=== PATIENT | female | born 2000 | race Caucasian/White ===

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

== ENCOUNTER 2021-01-09 12:55 | Inpatient (IN) | payer MEDICAID, SELFPAY ==
[2021-01-03 08:21] VITALS: BMI 27.6
[2021-01-09] VITALS (31 sets, daily range): BP systolic 111–138; BP diastolic 57–88; PULSE 83–120; TEMP 36.3–37.2; O2SAT 98–100; BMI 28.7
[2021-01-09 12:51] LABS: ROM Internal Control Test YES-OK TO RESULT pt. (Internal QC)
[2021-01-09 12:52] LABS: ROM Patient Test POSITIVE (Negative)
[2021-01-09] MEDS: Lactated Ringers 1,000 ML 50 ML IV (13:25)
[2021-01-09 13:50] LABS: Absolute Neutrophil Count 6.9 X10^3/uL (2.0-7.7); Basophil# 0.04 X10^3/uL; Basophil% 0.4 % (0-1); Eosinophil# 0.03 X10^3/uL; Eosinophils% 0.3 % (0-5); Hematocrit 33.1 % (37-47); Hemoglobin 10.2 g/dL (12.0-15.0); Lymphocyte % 14.4 % (19-41); Mean Corp Hgb Conc 30.8 g/dL (32-36); Mean Corpuscular Hgb 27.1 pg (27.0-32.0); Mean Corpuscular Volume 87.8 fL (81-99); Mean Platelet Vol. 12.2 fl (6.2-12.0); Monocyte# 0.61 X10^3/uL; Monocyte% 6.7 % (0-10); NRBC Flagged by Analyzer 0 % (0-5); Neutrophil # 6.94 X10^3/uL (2.7-7.7); Neutrophil % 76.8 % (47-70); Platelet Count 180 K/mm3 (150-450); RBC Distribution Width CV 14.4 % (11.6-14.6); RBC Distribution Width SD 45.5 fl (35.1-43.9); Red Blood Count 3.77 M/mm3 (4.2-5.4); White Blood Count 9.1 K/mm3 (4.4-11.0)
[2021-01-09] MEDS: Acetaminophen 500 MG Tablet PO (15:41)
[2021-01-09] MEDS: miSOPROStol 25 MCG TABLET PO (16:16)
[2021-01-09] MEDS: 0.9% Saline Lock 10 ML Syringe IV ×2 (16:16→19:36)
[2021-01-09] MEDS: Lactated Ringers 500 ML 999 ML IV (17:51)
[2021-01-09] MEDS: fentaNYL-bupivacaine (epidural) 100 ML BAG EPIDURAL ×2 (19:02→23:13)
[2021-01-09] MEDS: Ondansetron 4 MG/2 ML Vial IV (19:36)
[2021-01-09] MEDS: Oxytocin 30 units/NS 500 ml 30 UNITS/500 ML IV.SOLN IV (20:55)
[2021-01-09] MEDS: Lactated Ringers 1,000 ML 200 ML IV (22:16)
[2021-01-10] VITALS (18 sets, daily range): BP systolic 103–135; BP diastolic 56–88; PULSE 75–105; RESP 16–18; TEMP 36.5–37.6; O2SAT 83–99
[2021-01-10] MEDS: 0.9% Saline Lock 10 ML Syringe IV (00:40)
[2021-01-10] MEDS: Ondansetron 4 MG/2 ML Vial IV (00:40)
[2021-01-10] MEDS: Oxytocin 30 units/NS 500 ml 30 UNITS/500 ML IV.SOLN 334 UNITS IV (02:24)
--- NOTE | 2021-01-10 02:37 | HP.PCM_ITS ---
- Problem List (1) SROM (spontaneous rupture of membranes) Status: Acute (2) 35 weeks gestation of Status: Acute Comment: electronic covid test ordered 12/07/20 (scheduled for 01/11/21 at 1340) (3) Encounter for contraceptive management Status: Acute Qualifiers: Comment: IUD 6 wk pp (4) History of cleft lip Status: Acute Comment: patient's father (5) History of tetanus, diphtheria, and acellular pertussis booster vaccination (Tdap) Status: Acute Comment: 10/25/20 (6) Iron (Fe) deficiency anemia Status: Acute Qualifiers: Comment: recheck in 4 wks- recheck is still low- needs weekly Venofer. 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 Accompanied by: self Allergies No Known Allergies Allergy (Verified 01/03/21 08:24) Medications multivitamin no.47-iron fum 27 mg-folate no.1 1 mg-dha 300 mg capsule cap PO 06/07/20 [History Confirmed 01/03/21] ondansetron 4 mg disintegrating tablet 4 mg PO Q4H PRN #60 tab 10/25/20 [Rx Confirmed 01/03/21] Last Menstral Period: 04/06/20 Zika: Zika virus screening: Negative : No PFSH PFSH Family History Mother Diabetes Social History (Updated 01/03/21 @ 09:34 by Cecy Wing NP, [employer]) current occupational status: unemployed pets and animals: Yes second hand exposure: Yes alcohol intake: never substance use type: does not use seatbelt use: always do you feel safe at home: Yes additional social history: BF- Mateus Aponte Pregancy History 2 Elective abortions Hx Para 0 Spontaneous abortions Hx # Term Pregnancies Ectopic pregnancies Hx # Pregnancies Multiple births # of living children HPI 38WK OB : Details: JIA BEAR is a 20 year old at 39 weeks 5 days presents with clear SROM 1 cm dilated irregular contractions no vaginal bleeding. OB Visit MARGARITA Calculator Estimated Delivery Date Method Current WG Current Estimate 01/11/21 LMP (Certain) 38w 6d Other Estimates 01/13/21 Ultrasound #1 38w 4d Expected Delivery Route/Plan Labor Preferences- CB/BF classes: encouraged labor support person: Mateus labor intervention preferences: nonspecific. pain management options preferred: epidural cut cord/dad catch: yes : yes PP control planned: IUD discussed possible routes of delivery and associated risks: discussed possible delivery modalities and possible indications for each including R/B/A of , VAVD, FAVD, and CS. questions answered. special requests: none Specific Issue/Plans flu vaccine: declined tdap vaccine: given rhogam: NA LARC form signed: yes movement and labor precautions reviewed. Problem list reviewed and updated with the most current plan of care details and appropriate orders placed. Relevant counseling for the gestational age provided. Continue routine care and follow up unless otherwise noted in visit notes/problem list details Initial Weight: 128 lb Date EGA Weight BP Urine Prot Glucose FHR FuHt Pres Dilation Effaced St Visit Note 06/07/20 8w 6d 128 lb (+0 oz) 116/60 116/60 163 GP - CRL 17.4mm consistent with LMP. 07/02/20 12w 3d 132 lb (+4 lb) 100/74 160 SM- no vb lof cramping still nauseated 08/07/20 17w 4d 139 lb 8 oz (+11 lb 8 oz) 118/70 Negative Negative 145 MH-nausea resolved. No VB, LOF. 10/11/20 26w 6d 155 lb (+27 lb) 100/70 145 Sm- no vb lof good fm no regular ctx discussed getting anatomy scans 10/25/20 28w 6d 161 lb (+33 lb) 126/78 Negative Negative 138 28 MH-NO VB, LOF. Good FM. Still some nausea. 28 wk labs, tdap, larc. 11/08/20 30w 6d 167 lb (+39 lb) 138/80 Negative Negative 130 30 GP - no LOF, VB, DFM, ctx. Discussed anemia and importance of taking iron. 11/22/20 32w 6d 168 lb 6 oz (+40 lb 6 oz) 110/80 Negative Negative 130 33 SM- repeat cbc today no vb lof good fm no regular ctx 12/06/20 34w 6d 174 lb 4 oz (+46 lb 4 oz) 132/72 Negative Negative 120 34 GP - no LOF, VB, DFM, ctx. Denies complaints. 12/20/20 36w 6d 177 lb (+49 lb) 118/88 Negative Negative 140 36 Cephalic 1 60 -2 GP - no LOF, VB, DFM, reg ular ctx. GBS done today. Discussed routes of delivery. 12/27/20 37w 6d 180 lb (+52 lb) 123/81 Negative Negative 140 37 Cephalic 1 SM- no vb lof good fm no regular ctx 01/03/21 38w 6d 181 lb 6 oz (+53 lb 6 oz) 122/64 Negative Negative 135 38 Cephalic 1 -2 MH-No VB, LOF or reg CTX. States no FM this AM. NST ACOG First Trimester First Trimester: Desire for , Alcohol, Tobacco Cessation, Illicit/Recreational Drug/Substance Use, Intimate Partner Violence, Environmental/Work Hazards, Anticipated Course of Care, Toxoplasmosis Precations, Use of Any medications, Sexual activity, Exercise, Dental Care, Childbirth classes/Hospital facilities and Screening for Aneuploidy Second Trimester Second Trimester: Signs and Symptoms of Labor, Selecting a care provider, Reproductive Life Planning, Care Planning, Depression/Anxiety and Intimate Partner Violence; discussed Tobacco Cessation Diagnostics Diagnostics Diagnostics Glucose 1 Hr 50 gm 130 mg/dL (70-140) 10/25/20 Hgb 9.7 g/dL (12.0-15.0) L 11/22/20 Hct 30.6 % (37-47) L 11/22/20 Details: HIV: Urine Culture: Sequential Screen: NIPT Screen: ROS Const Reports system reviewed and no additional complaints, except as documented Card Reports system reviewed and no additional complaints, except as documented Resp Reports system reviewed and no additional complaints, except as documented GI Reports system reviewed and no additional complaints, except as documented, Reports nausea Reports system reviewed and no additional complaints, except as documented Musc Reports system reviewed and no additional complaints, except as documented all other systems reviewed and negative Exam Const General: cooperative, healthy appearing, comfortable HENMT Head: normal to inspection Nose: external nose normal Face and sinus: normal facial exam Neck Neck: normal visual inspection, full ROM, no lymphadenopathy Thyroid: thyroid normal Chest Chest palpation & inspection: normal inspection of the chest Resp Effort & Inspection: normal respiratory effort GI Inspection: normal to inspection Palpation: soft, other (gravid uterus) Other: vertex and appropriate size for gestational age Other: Cervical Exam: Extrem General: pedal edema Office Procedures OB NST Non-Stress Test Indications for Monitoring: Yes decreased movement Heart Rate Baseline: 140 Heart Rate Variability: moderate Movement: Present Heart Rate Accelerations: Present Decelerations: Absent Contractions: Absent Impression: Yes Reactive Non-Stress Test Results POC Urinalysis 2 Dip (Clinic) Office Urine Glucose Negative Last Edit by Anna Marie Prater on 01/03/21 08:29 Office Urine Protein Negative Last Edit by Anna Marie Prater on 01/03/21 08:29 Assessment & Plan Problems 1. PROM 2. Encounter for supervision of normal first in third trimester Z34.03 PRR MARGARITA 01/11/21 Girl - BF: Mateus 3. 38 weeks gestation of Z3A.38 genetic- low risk and carrier neg , 10/15 US adequate growth 4. Positive GBS test B95.1 Plan Patient presents SROM plan Pitocin as needed, status post Cytotec due to premature rupture membranes. Pain management: [plans epidural]. GBS [positive plan IV PCN]. Management of any complications: [none] I have reviewed the [facility] and made any clinically relevant updates. Orders Orders: POC Urinalysis 2 Dip (Clinic) Today OB NST Today O36.8190 Coding Level of Care Code Off vis,est,level 3 Diagnoses Decreased movement affecting management of in third trimester, single or unspecified fetus O36.8130 ??Fetus number: single or unspecified fetus Encounter for supervision of normal first in third trimester Z34.03 ??Trimester: third trimester 38 weeks gestation of Z3A.38 ??Weeks of gestation: 38 weeks Positive GBS test B95.1 Additional Codes Non-Stress Test (55263)
--- NOTE | 2021-01-10 02:39 | OP.PCM_ITS ---
Problem List (1) SROM (spontaneous rupture of membranes) Status: Acute (2) 35 weeks gestation of Status: Acute Comment: electronic covid test ordered 12/07/20 (scheduled for 01/11/21 at 1340) (3) Encounter for contraceptive management Status: Acute Qualifiers: Comment: IUD 6 wk pp (4) History of cleft lip Status: Acute Comment: patient's father (5) History of tetanus, diphtheria, and acellular pertussis booster vaccination (Tdap) Status: Acute Comment: 10/25/20 (6) Iron (Fe) deficiency anemia Status: Acute Qualifiers: Comment: recheck in 4 wks- recheck is still low- needs weekly Venofer. faxed order for infusions (7) Positive GBS test Status: Acute (8) Status: Acute Qualifiers: Comment: genetic- low risk and carrier neg , 10/15 adequate growth (9) Supervision of normal first Status: Acute Qualifiers: Comment: PRR MARGARITA 01/11/21 Girl - Kati BF: Mateus Vaginal Delivery Maternal Presentation: Active Labor, Spontaneous Rupture of Membranes 20-year-old C2 P0 at 39 weeks 5 days presents with clear SROM 70/-2 irregular contractions Method of Induction: Pitocin, Cytotec Amniotic Membrane Rupture Type: Spontaneous at home Amniotic Fluid Description: Clear Final MARGARITA: 01/11/21 Gestational age: 39 Weeks and 6 Days Date of Procedure: 01/10/21 Pre-Operative Diagnosis: SROM Post-Operative Diagnosis: Same Surgery/ Procedure Performed: Spontaneous Vaginal Delivery Type of Anesthesia: Epidural Description of Procedure: Patient began pushing and delivered the head in the STEPHANIE presentation. The head was delivered atraumatically. The anterior and posterior shoulders delivered without complication followed by the rest of the infant and the was placed on the maternal abdomen. Delayed cord clamping was employed for approximately 60 seconds. Cord was clamped and cut and gentle traction was applied to the cord and the placenta delivered spontaneously immediately following it was noted to be intact with three-vessel cord. The perineum and vagina were inspected and noted to have no laceration. EBL was 100 cc. Patient and infant tolerated delivery well. Presentation: STEPHANIE Placental Delivery Description: Spontaneous Multi Select Codes - Urinary/Genital Urinary/Genital CPT Codes: 19100 Vaginal Delivery+ PP Care([facility])
[2021-01-10] MEDS: Naproxen 250 MG Tablet 500 MG PO (20:46)
[2021-01-11 04:38] VITALS: BP 123/73; PULSE 78; RESP 18; TEMP 36.6
[2021-01-11 08:10] VITALS: BP 127/88; PULSE 66; RESP 14; TEMP 36.7
[2021-01-11] MEDS: Acetaminophen 500 MG Tablet 1000 MG PO (08:13)
[2021-01-11] MEDS: Senna/Docusate Sodium 1 Tablet PO (08:14)
--- NOTE | 2021-01-11 09:51 | DCINST_ITS ---
Discharge Diet: No Restrictions Discharge Activity: Return to Normal Activity, May not drive while taking narcotic pain medications., May Shower May resume sexual activity in: 4-6 weeks Call your doctor if your incision/area has: Continuous Slow Oozing, Sudden Increased Bleeding, Increased Pain/ Swelling, Increased Redness, Foul Smelling Discharge Additional Instructions: If you experience any of the following, contact your healthcare provider. * Bleeding that soaks a pad every hour for 2 hours * Fever 100.4 or higher * Unrelieved incision or abdominal pain * Swelling, redness, discharge or bleeding from your incision or episiotomy site * Your incision begins to separate * Problems urinating (including inability to urinate or burning while urinating). * Visual changes * Severe headache * Flu-like symptoms * Pain or redness in one of both of your breasts * Pain, warmth, tenderness or swelling in your legs, especially the calf area * Frequent nausea and vomiting * Symptoms of depression or anxiety If you experience any of the following, call 911 or go to the nearest Emergency Room. * Chest pain * Problems breathing * Seizure activity * Partial or complete paralysis of a body part, slurred speech, weakness or drooping of the face, or a sudden inability to walk or hold your balance Allergies/Adverse Reactions: Allergies No Known Allergies Allergy (Verified 01/09/21 13:39) Medications to take at Discharge multivitamin no.47-iron fum 27 mg-folate no.1 1 mg-dha 300 mg capsule 1 cap PO DAILY 06/07/20 Naproxen [Naprosyn] 250 - 500 mg PO Q8H PRN PRN #30 tab 01/10/21 Naproxen [Naprosyn] 250 - 500 mg PO Q8H PRN PRN #30 tab 01/11/21 The following prescriptions were given: Naproxen [Naprosyn] 250 - 500 mg PO Q8H PRN PRN #30 tab PRN Reason: MILD PAIN Transmission Status: Received by [facility] Please Follow Up With: Jenna Pedersen MD - [phone] When: Call to make an appointment with your doctor in 6 weeks. If you had elevated Blood pressure or 4th degree laceration you will need to be seen in 2 weeks. Test Results: Test results from this visit will be discussed in further detail at your follow- up appointment, if applicable.
--- NOTE | 2021-01-11 09:51 | PCM.DCVAG ---
Discharge Diet: No Restrictions Discharge Activity: Return to Normal Activity, May not drive while taking narcotic pain medications., May Shower May resume sexual activity in: 4-6 weeks Call your doctor if your incision/area has: Continuous Slow Oozing, Sudden Increased Bleeding, Increased Pain/ Swelling, Increased Redness, Foul Smelling Discharge Additional Instructions: If you experience any of the following, contact your healthcare provider. Bleeding that soaks a pad every hour for 2 hours Fever 100.4 or higher Unrelieved incision or abdominal pain Swelling, redness, discharge or bleeding from your incision or episiotomy site Your incision begins to separate Problems urinating (including inability to urinate or burning while urinating). Visual changes Severe headache Flu-like symptoms Pain or redness in one of both of your breasts Pain, warmth, tenderness or swelling in your legs, especially the calf area Frequent nausea and vomiting Symptoms of depression or anxiety If you experience any of the following, call 911 or go to the nearest Emergency Room. Chest pain Problems breathing Seizure activity Partial or complete paralysis of a body part, slurred speech, weakness or drooping of the face, or a sudden inability to walk or hold your balance Allergies/Adverse Reactions: Allergies No Known Allergies Allergy (Verified 01/09/21 13:39) Medications to take at Discharge multivitamin no.47-iron fum 27 mg-folate no.1 1 mg-dha 300 mg capsule 1 cap PO DAILY 06/07/20 Naproxen [Naprosyn] 250 - 500 mg PO Q8H PRN PRN #30 tab 01/10/21 Naproxen [Naprosyn] 250 - 500 mg PO Q8H PRN PRN #30 tab 01/11/21 The following prescriptions were given: Naproxen [Naprosyn] 250 - 500 mg PO Q8H PRN PRN #30 tab PRN Reason: MILD PAIN Transmission Status: Received by [facility] Please Follow Up With: Jenna Pedersen MD - [phone] When: Call to make an appointment with your doctor in 6 weeks. If you had elevated Blood pressure or 4th degree laceration you will need to be seen in 2 weeks. Test Results: Test results from this visit will be discussed in further detail at your follow-up appointment, if applicable.
--- NOTE | 2021-01-11 09:53 | PCM.PN.OB ---
Patient Problems: Active and Suspected Problems (Last Reviewed 01/03/21 @ 08:24 by Anna Marie Prater) SROM (spontaneous rupture of membranes) (Acute) Positive GBS test (Acute) 35 weeks gestation of (Acute) electronic covid test ordered 12/07/20 (scheduled for 01/11/21 at 1340) Iron (Fe) deficiency anemia (Acute) recheck in 4 wks- recheck is still low- needs weekly Venofer. faxed order for infusions Encounter for contraceptive management (Acute) IUD 6 wk pp History of tetanus, diphtheria, and acellular pertussis booster vaccination (Tdap) (Acute) 10/25/20 History of cleft lip (Acute) patient's father Supervision of normal first (Acute) PRR MARGARITA 01/11/21 Girl - Kati BF: Mateus (Acute) genetic- low risk and carrier neg , 10/15 adequate growth Subjective: Patient doing well without complaints. Tolerating PO. Ambulating and voiding without difficulty. feeding well. Denies chest pain, shortness of breath, calf pain/swelling, fevers, chills, lightheadedness. - Physical Exam Vitals/I&O's: Vital Signs Temp Pulse Resp BP Pulse Ox 98.0 F 66 14 127/88 H 99 01/11/21 08:10 01/11/21 08:10 01/11/21 08:10 01/11/21 08:10 01/10/21 01:42 Oxygen Delivery Method Room Air Weight: 183 lb 3.266 oz Body Mass Index (BMI) 28.7 Intake and Output for Last 24 Hours 01/09/21 01/10/21 01/11/21 23:59 23:59 23:59 Intake Total 1652.43 / 1652.43 1588.60 / 1588.60 Output Total 300 / 300 Balance 1652.43 / 1652.43 1288.60 / 1288.60 General: Alert, Oriented x3 Microbiology Past 72 Hours 01/09/21 13:15 Mucosa - Nose SARS-CoV-2 Antigen (Rapid) - Final Current Medications Acetaminophen (Acetaminophen 500 Mg Tablet) 1,000 mg PO Q8H PRN PRN PRN Reason: Pain Score 1-3 Last Admin: 01/11/21 08:13 Dose: 1,000 mg Documented by: Bisacodyl (Bisacodyl 10 Mg Suppository) 10 mg RC UD PRN PRN Reason: If no BM Dibucaine (Dibucaine 30 Gm Tube) 1 applic TOPICAL TID PRN PRN; Protocol PRN Reason: Discomfort Hydrocortisone (Hydrocortisone 2.5% Crm) 1 applic TOPICAL TID PRN PRN; Protocol PRN Reason: Discomfort Methylergonovine Maleate (Methylergonovine 0.2 Mg/Ml Ampul) 0.2 mg IM X1 PRN PRN Reason: Excess bleeding/uterine atony Naproxen (Naproxen 250 Mg Tablet) 500 mg PO Q8H PRN PRN PRN Reason: Pain Score 1-3 Last Admin: 01/10/21 20:46 Dose: 500 mg Documented by: Ondansetron HCl (Ondansetron 4 Mg/2 Ml Vial) 4 mg IV Q4H PRN PRN PRN Reason: Nausea Oxycodone HCl (Oxycodone 5 Mg Tablet) 5 - 10 mg PO Q4H PRN PRN PRN Reason: Pain Score 4-10 Senna/Docusate Sodium (Senna/Docusate Sodium 1 Tablet) 1 - 2 tablet PO DAILY PRN PRN PRN Reason: Constipation Last Admin: 01/11/21 08:14 Dose: 1 tablet Documented by: Simethicone (Simethicone 80 Mg Tablet) 80 mg PO PCHS PRN PRN Reason: Indigestion/Stomach pain Sodium Chloride (0.9% Saline Lock 10 Ml Syringe) 5 - 15 ml IV UD PRN PRN Reason: SALINE FLUSH Medical Necessity - Tobacco Use Smoking Status: Never smoker Assessment/Plan All Active Problems (Last Reviewed 01/03/21 @ 08:24 by Anna Marie Prater) SROM (spontaneous rupture of membranes) (Acute) Positive GBS test (Acute) 35 weeks gestation of (Acute) Iron (Fe) deficiency anemia (Acute) Encounter for contraceptive management (Acute) History of tetanus, diphtheria, and acellular pertussis booster vaccination (Tdap) (Acute) History of cleft lip (Acute) Supervision of normal first (Acute) (Acute) s/p PPD # 1 1. routine post delivery care 2. breast feeding- support given 3. rh positive 4. rubella immune
[2021-01-11] MEDS: Naproxen 250 MG Tablet 500 MG PO (11:21)
[2021-01-11 11:24] VITALS: BP 135/73; PULSE 60; RESP 14; TEMP 36.8
--- NOTE | 2021-01-11 12:45 | CASEMGMT ---
Addendum entered and electronically signed by Araceli Howell 01/14/21 14:52: For clarification, Dawn depression screen with a score of 11 rather than a score of 13 as originally documented. -LUTHER Swanson, COMMUNITY HEALTH AGENT Original Note: Social Work Assessment Labor and Delivery Unit Patient Address: [address] [place] [address] Phone number: [phone] Date of Referral: 01/11/2021 Time of Referral: [phone] Referred By: Verbal notification by nursing staff Date of Intervention: 01/11/2021 Time of Intervention: 124 Reason for Referral: Teen mother-18 years old, history of marijuana use History obtained from: Medical records and mother of baby (MOB) Rosie Max; father of baby (FOB) Mateus Aponte present for part of conversation. Household composition: MOB and FOB reports negative home with the FOB several of his siblings. MOB and FOB report there is enough room. FOB reports he is a mother of baby live upstairs. Patient's parent/guardian status: MOB is a 20-year-old single female involved with the FOB is 23 years old, for the last 3 years. In speaking with the MOB privately, the MOB denies any form of abuse in his relationship. baby is the first for both parents. is to be named Deann Aponte, born 01-10-2020. Medical History: DANIEL is 2, para 0 now 1 after delivering Deann. care started in the first trimester at 8 weeks. There was a gap in care from 17 to 26 weeks. Delivery occurred at 39 weeks gestation. weight for Deann was 7 pounds 10 ounces. Apgars 8 and 9 at 1 and 5 minutes of life respectively. Educational Status: MOB reports she got through the 10th grade in school. Reports she did have learning disability and an IEP in school. Reports she can read and write, as well as understand what is read. However during this assessment, this documentation writer did have to reword a few things to ensure parent understanding. Financial Status: Neither MOB nor FOB work, and are dependent on the FOB's parents for financial support. FOB reports plan to get his license soon and find a job. Infant Supplies: MOB and FOB report to have all needed baby supplies including a crib, car seat, clothing, wipes, pump, bottles. Report ability to get formula if needed. MOB is providing breastmilk at this time. Childcare/Caregiver(s): MOB plans to be the primary caregiver of the . Will have help from the FOB as well. Transportation: MOB and FOB rely on his parents for transportation. Programs/Agencies Involved: DANIEL has medical through job and family services. Active with WIC. Verbally agrees to a referral to help me grow. Children Services/Legal Issues: MOB and FOB deny any legal history. MOB reports as a minor herself children services was called once when living out of state for concerns about meth lab in her home, but reports it was just hair dye ring in the bathtub rather than meth lab. MOB reports the second call was here in [place] with complaints of no food in the home. Nothing as an adult nor regarding MOB with minor children. Behavioral Health Issues: Mental Health History: DANIEL reports that she had depression as a child and thoughts of harming herself when in school. Denies any attempts at harming herself however. Denies any thoughts of harming herself as an adult. Initially the MOB denied any history of depression or anxiety. Had MOB complete the Dawn depression screen which resulted in a score of 13. Educated MOB that this indicates there is some level of depression and/or anxiety present for this MOB. MOB asked this documentation writer to explain more in depth about what anxiety actually is. This documentation writer reviewed signs and symptoms of anxiety. After education the MOB stated believe that she does not fact have anxiety. Substance Use History: MOB denies any illicit substance use history. This documentation writer discussed privately with the MOB reports this documentation writer received about MOB potentially having history of marijuana usage. MOB reported that she was around people who were using marijuana during this and that she breathe did then and started choking, so was concerned she may have inhaled it. MOB denies there is anybody in the home using marijuana. Denies any history of other drug use such as heroin, cocaine, or meth. Denies alcohol usage. Family History: MOB reports that her mother and her brother both have schizophrenia and bipolar disorder. FOB reports that he has a sister with bipolar disorder and schizophrenia. Drug Screens: This documentation writer noted a negative maternal drug screen on 2019. Baby's urine drug screen at delivery is negative. Meconium is pending. Family/Social Stressors: Unplanned though accepted. Limited finances, though parents do not express this as a stressor due to the FOB's parents being supportive. Reliant on others for transportation. MOB reports that she already is worrying about the baby. Support Systems: MOB reports that the FOB and his family are her primary support systems. MOB family lives in [place] so does not always easy to see them with having limited transportation. Depression/Shaken Baby/Safe Sleeping: Educated MOB and FOB to depression and anxiety. Educated to risk factors present and the importance of seeking out help and support. Educated to shaken baby syndrome and safe sleeping. Reinforced safe care of infant in regards to these topics. ASSESSMENT: Met with the MOB and the FOB together and then separately with the MOB. During the time when FOB was present, the FOB tended to monopolize the conversation though was pleasant and easily redirectable. FOB would be respectful of the MOB, when this documentation writer would look only at the MOB for answers. During private conversation with the MOB, the MOB denies any form of abuse in the relationship with the FOB. This documentation writer acknowledged that the FOB seems to have higher energy, which MOB reports the FOB had an energy drink prior to the social research assistant coming in and not a lot of sleep. MOB reports to feel a connection with the baby and to let the baby. This documentation writer gave MOB much encouragement for being able to speak up and ask about what anxiety actually is. Reviewed with the MOB potential options to help manage depression and anxiety. MOB reports preference of trying medication rather than counseling at this time, mostly due to transportation issues and making sure to have somebody to watch the baby. MOB and FOB both agree to a help me grow referral to help increase support with parenting and . Parents accepted information on [facility] resource list, mood and anxiety disorders, safe sleeping, and shaken baby prevention. Provided MOB with information on care source transportation. No voiced concerns by nursing staff regarding parent-child interactions or bonding. This documentation writer did speak with the RN after meeting with the MOB and FOB due to both parents reporting to this worker having a history of an IEP in school. This documentation writer wanting to ensure that parents understanding education that nursing provided on care. RN agreed to review with the parents again for better understanding. Plan of Care for infant related to substance use: MOB denies any actual use of substances for herself. FOB denies any substance use for himself. MOB denies any plan for the baby to be around people who are using drugs. Educated MOB to recommendation of abstaining from any illicit substances while breast-feeding especially. This documentation writer called MOB'S hemodialysis patient care specialist office, and spoke with nurse Abi. Updated to Dawn depression screen score and MOV's voiced interest in starting medications. Informed that MOV uses drug [facility] for pharmacy. PLAN: MOB and will discharge home. Help me grow referral for increased support. Will monitor for meconium drug screen results and make additional referrals if indicated. No other services requested or indicated. -GRAYSON Swanson, COMMUNITY HEALTH AGENT *Information documented in this assessment generated with [email or web address]*
--- NOTE | 2021-01-14 14:57 | CASEMGMT ---
Social Work Labor and Delivery unit Help me grow referral submitted through the [facility] assisted care web-based referral system. [] No other services requested or indicated other than monitoring for meconium drug screen results.. -LUTHER Swanson, NURSE OBGYN. *Information documented in this note generated via [employer] system*
--- NOTE | 2021-01-15 19:43 | NURSING ---
follow up phone call attempted. Voicemail full. Unable to leave message
== END 2021-01-11 13:20 | disposition home or self-care (01) | DRG 560 ==
LOC: WPOUT 13:00 → WP 01-10 02:27
PROVIDERS: Admitting Provider Obstetrics & Gynecology; Referring Provider Obstetrics & Gynecology; Visit Provider Obstetrics & Gynecology
DX: O42.92 Full-term premature rupture of membranes, unspecified as to length of time between rupture and onset of labor (principal); O99.824 Streptococcus B carrier state complicating childbirth; Z37.0 Single live birth; Z3A.38 38 weeks gestation of pregnancy
CPT/HCPCS: 59025; 59050; 84112; 85025; 86850; 86900; 86901; 87426; 99218; J7120; A4216; G0378; J2405

== ENCOUNTER 2022-09-02 16:21 | Emergency (ER) | payer MEDICAID, SELFPAY ==
[2022-09-02 16:21] VITALS: BP 112/76; PULSE 113; RESP 18; TEMP 36.2; O2SAT 100; BMI 21.2
[2022-09-02 16:24] VITALS: BP 118/67; PULSE 71; RESP 18; TEMP 37; O2SAT 99
--- NOTE | 2022-09-02 17:10 | EX.ED.DYSGE1 ---
HPI <SHAMAR Rahman - Last Filed: 09/02/22 21:59> History of Present Illness Chief Complaint: Cold Sx Narrative Narrative: Patient presents today with cold-like symptoms. She states she has had body aches, a sore throat, nasal congestion, nausea, and vomiting for the past 2 days. Patient states she has been able to drink fluids but has a hard time tolerating solids due to being nauseous. She states she went to urgent care yesterday where they performed a flu and COVID test which were both negative. She denies fever, chills, difficulty breathing, shortness of breath, and diarrhea. PFSH <SHAMAR Rahman - Last Filed: 09/02/22 21:59> PFSH Medical History no medical history Home Medications amoxicillin 500 mg capsule 500 mg PO BID strep pharyngitis 10 days #20 caps 09/02/22 [Rx Last Taken Unknown] ondansetron 4 mg disintegrating tablet 4 mg PO Q8H PRN nausea and vomiting #10 tabs 09/02/22 [Rx Last Taken Unknown] Allergy/AdvReac Type Severity Reaction Status Date / Time No Known Allergies Allergy Verified 03/21/22 14:56 Family History Mother Diabetes Surgical History no surgical history Social History current occupational status: unemployed pets and animals: Yes Smoking Status: Never smoker second hand exposure: Yes alcohol intake: never substance use type: does not use seatbelt use: always do you feel safe at home: Yes additional social history: BF- Mateus Aponte ROS <SHAMAR Rahman - Last Filed: 09/02/22 21:59> ROS ED Constitutional Constitutional ED: Denies chills, fever(s) or sweats Eyes Eyes: Denies change in vision or discharge from eye(s) ENT ENT ED: Denies discharge from eye(s) Cardiovascular Cardiovascular: Denies chest pain or palpitations Respiratory/Chest Respiratory/Chest: Reports cough; Denies dyspnea, dyspnea on exertion, shortness of breath at rest, shortness of breath with exertion or wheezing Gastrointestinal Gastrointestinal: Reports abdominal pain, nausea and vomiting; Denies constipation, diarrhea, hematemesis, hematochezia or melena Musculoskeletal Musculoskeletal: Reports myalgias; Denies back pain or neck pain Integumentary Denies abscess, Abrasions or rash Neurologic Neurologic: Denies headache(s) or weakness EXAM <SHAMAR Rahman - Last Filed: 09/02/22 21:59> Physical Exam Const Vital Signs: 09/02/22 16:21 09/02/22 17:16 09/02/22 16:24 Temperature 97.1 F L 98.6 F Temperature Source Temporal Temporal Pulse Rate 113 H 71 Respiratory Rate 18 18 Respiratory Effort Normal Non-Labored Respiratory Depth Normal Respiratory Pattern Normal Blood Pressure 112/76 118/67 Blood Pressure Mean 88 84 Pulse Ox 100 99 Oxygen Delivery Method Room Air Room Air Room Air Positive well nourished and well developed General Appearance ED: well developed HEENT Reports TM's clear and moist mucous membranes Negative for trauma or tenderness Tympanic Membrane ED: Yes TM's clear Mouth ED: Yes oral and palatal mucosa normal Mouth: oral and palatal mucosa normal Throat: uvula midline, tonsils abnormal bilateral erythema and exudates and posterior oropharynx abnormal Positive for erythema Eyes PERRL and EOMs intact bilaterally Neck no lymphadenopathy, supple and no meningeal signs General: normal visual inspection and trachea midline; Negative for anterior neck swelling Resp normal respiratory effort and clear to auscultation bilaterally Cardio regular rate, regular rhythm and no murmurs GI normal to inspection, nondistended, normoactive bowel sounds, non-tender and no masses Palpation: soft Back/Spine Cervical Spine: cervical ROM normal Thoracic Spine / Upper Back: normal to inspection Lumbar Spine / Lower Back: normal to inspection Extremity normal to inspection General Extremety ED: Negative for edema General Extremity: Negative for edema Neuro oriented x3, CN's II-XII intact bilaterally and no sensory deficits noted Sensorium / Orientation: alert Motor Exam: strength 5/5 throughout Psych mental status grossly normal Skin no rashes or lesions noted, no wounds and skin turgor normal <Dr. Debbie Carmichael MD - Last Filed: 09/03/22 00:41> Physical Exam Const Vital Signs: 09/02/22 16:21 09/02/22 17:16 09/02/22 16:24 Temperature 97.1 F L 98.6 F Temperature Source Temporal Temporal Pulse Rate 113 H 71 Respiratory Rate 18 18 Respiratory Effort Normal Non-Labored Respiratory Depth Normal Respiratory Pattern Normal Blood Pressure 112/76 118/67 Blood Pressure Mean 88 84 Pulse Ox 100 99 Oxygen Delivery Method Room Air Room Air Room Air [facility] <SHAMAR Rahman - Last Filed: 09/02/22 21:59> [facility] Narrative Medical decision making narrative: I have rechecked flu and COVID. I have also checked for strep throat. She has been given Zofran for nausea and is tolerating p.o. fluids. Patient is positive for strep pharyngitis. Patient's vitals have been stable in the ED and she has been afebrile. I am comfortable with patient discharging home with antibiotics. Patient is comfortable with plan. I have given her return instructions. I had given patient a return to work for tomorrow before flu a came back positive. Nurse has called patient to let her know she has the flu and should not be around others. <Dr. Debbie Carmichael MD - Last Filed: 09/03/22 00:41> [facility] Treatment and Re-Evaluation Narrative: Patient seen and evaluated with JOLANTA. I personally interviewed and examined the patient. I was involved in all aspects of patient's orders, interpretation of results, and treatment. Patient presents secondary to flulike symptoms. She complains of cough, congestion, body aches, sore throat. She had subjective fever at home. Others in her home of been ill with similar symptoms. Patient sitting in bedside chair no acute distress. She is nontoxic-appearing. Head and neck examination reveals mild tonsillar enlargement with erythema. She is tolerating secretions well and has a strong voice. Heart is regular rate and rhythm. Lung sounds are clear. Abdomen is soft and nontender. Patient's rapid strep test is positive. She will be treated with antibiotics. She also returns positive for influenza A. Supportive care is discussed for this. Return instructions given. Discharge Plan Triage Chief Complaint: Cold Sx ED Midlevel Provider: Manuela Victor ED Provider: Debbie Carmichael Dx/Rx/DC Orders Clinical Impression: Strep pharyngitis, Nausea, Influenza A Instructions: ED Pharyngitis, Strep (Confirmed) Prescriptions: New ondansetron 4 mg tablet,disintegrating 4 mg PO Q8H PRN (Reason: nausea and vomiting) Qty: 10 0RF amoxicillin 500 mg capsule 500 mg PO BID 10 Days Qty: 20 0RF Stand Alone Forms: ED Work / School Excuse Primary Care Provider: Care Physician,No Primary Referrals: Terra Clay MD [Med Staff - Door Trimmer] - 1 Week if not improving Care Physician,No Primary [Primary Care Provider] - Activity Restrictions/Additional Instructions: Please take antibiotics as directed. Throat lozenges and sore throat spray can be used to help with pain. You can use Tylenol or ibuprofen for fever control if one develops. Stay well-hydrated and return if symptoms worsen. Disposition Disposition: Home, Self Care Discharge Date/Time: 09/02/22 18:36
[2022-09-02 17:16] VITALS: O2SAT 98
[2022-09-02] MEDS: Ondansetron ODT 4 MG Tablet PO (17:22)
--- NOTE | 2022-09-02 18:48 | ED.RN ---
THIS RN NOTIFIED BOTH THE PATIENT AND PHYSICIAN THAT PT IS FLU A POSITIVE WELL. PT VERBALIZES UNDERSTANDING
== END 2022-09-02 18:36 | disposition home or self-care (01) ==
PROVIDERS: Emergency Provider Emergency Medicine; Visit Provider Emergency Medicine
DX: J02.0 Streptococcal pharyngitis (principal); J10.1 Influenza due to other identified influenza virus with other respiratory manifestations; R11.0 Nausea
CPT/HCPCS: 87428; 87880; 99283

== ENCOUNTER 2022-12-22 14:05 | Emergency (ER) | payer MEDICAID, SELFPAY ==
[2022-12-22 14:06] VITALS: BP 127/82; PULSE 101; RESP 16; TEMP 36.1; O2SAT 99; BMI 23.3
--- NOTE | 2022-12-22 14:21 | ED.VIS.DENTA ---
HPI History of Present Illness Chief Complaint: Dental Informant: patient Narrative Narrative: Patient's been having intermittent swelling of her jaw. She states this has been going off and on for a while. She has seen a dentist. They are going to get her in in the beginning of February again. But they just plan to do x-rays and a cleaning. They state they just do not have any openings to do filling or drilling of the teeth to drain this. She was referred by her dentist to go see urgent care or the emergency department. She did see urgent care about a week ago. She just finished 7 days of amoxicillin but did not feel that it really helped much. She still has some swelling on her left lower jaw. But she states it comes and goes. She is has no trouble eating or swallowing. No fevers or chills. No rash. No headaches. No joint pain. She has no known allergies. She does not know if she is ever been on clindamycin. But she states she has been on amoxicillin a few times and it does not seem to do as much. No trauma. PFSH PFSH Home Medications amoxicillin 500 mg capsule 500 mg PO BID strep pharyngitis 10 days #20 caps 09/02/22 [Rx Last Taken Unknown] ondansetron 4 mg disintegrating tablet 4 mg PO Q8H PRN nausea and vomiting #10 tabs 09/02/22 [Rx Last Taken Unknown] clindamycin HCl 300 mg capsule (Cleocin HCl) 300 mg PO Q6H #40 CAPSULES 12/22/22 [Rx Last Taken Unknown] naproxen 500 mg tablet 500 mg PO BID #14 tabs 12/22/22 [Rx Last Taken Unknown] Allergy/AdvReac Type Severity Reaction Status Date / Time No Known Allergies Allergy Verified 12/22/22 14:08 Family History Mother Diabetes Social History current occupational status: unemployed pets and animals: Yes Smoking Status: Never smoker second hand exposure: Yes alcohol intake: never substance use type: does not use seatbelt use: always do you feel safe at home: Yes additional social history: LEEROY Aponte ROS ROS ED Constitutional Constitutional ED: Denies chills or fever(s) Eyes Eyes: Denies blurry vision, change in vision or other ENT ENT ED: Reports other Details: See history of present illness ; Denies sore throat Cardiovascular Cardiovascular: Denies chest pain or racing heartbeat Gastrointestinal Gastrointestinal: Denies nausea or vomiting Musculoskeletal Musculoskeletal: Denies neck pain Integumentary Denies rash Neurologic Neurologic: Denies headache(s) Hematologic/Lymphatic Hematologic/Lymphatic: Denies lymphadenopathy Allergic/Immunologic Allergic/Immunologic ED: Denies tongue swelling EXAM Physical Exam Narrative Exam Narrative: Patient awake alert. She is sitting comfortably in bed. She carries on normal conversation. HEENT does show some external swelling over the anterior portion of the left mandible. No erythema. No fluctuance. No swelling below the mandible. Inside I do not see any drainable abscess. There is some tenderness of premolar on the lower left. Floor the mouth is soft. Tongue has normal motion without pain. No trouble swallowing. Her voice is normal. Heart is regular with a rate about 90. No murmur. Breathing is easy and unlabored Abdomen is soft. Extremities show no rash. Const Vital Signs: 12/22/22 14:06 Temperature 97.0 F L Temperature Source Temporal Pulse Rate 101 H Respiratory Rate 16 Blood Pressure 127/82 H Blood Pressure Mean 97 Pulse Ox 99 Oxygen Delivery Method Room Air MDM MDM MDM Narrative Medical decision making narrative: Patient has signs of a likely apical abscess. I explained that I am not able to drain this as I do not see any fluctuant soft area that I could drain. I do still recommend following up with dentist or picking another dentist that can get her in sooner. This is evidently been going on for some time. I am happy to help to see if we can calm this down. I do not think she requires any CT imaging at this time. There is no indication of Ludewig's angina or any airway involvement at all. She will be treated with oral antibiotics. We discussed reasons to return. Discharge Plan Triage Chief Complaint: Dental ED Provider: Chris Thomas Dx/Rx/DC Orders Clinical Impression: Abscess, dental Instructions: ED Tooth Abscess Prescriptions: New clindamycin HCl [Cleocin HCl] 300 mg capsule 300 mg PO Q6H Qty: 40 0RF naproxen 500 mg tablet 500 mg PO BID Qty: 14 0RF No Action ondansetron 4 mg tablet,disintegrating 4 mg PO Q8H PRN (Reason: nausea and vomiting) Qty: 10 0RF amoxicillin 500 mg capsule 500 mg PO BID 10 Days Qty: 20 0RF Primary Care Provider: Care Physician,No Primary Referrals: Care Physician,No Primary [Primary Care Provider] - Activity Restrictions/Additional Instructions: Follow-up with your dentist as soon as possible Disposition Disposition: Home, Self Care
== END 2022-12-22 14:47 | disposition home or self-care (01) ==
PROVIDERS: Emergency Provider Emergency Medicine; Visit Provider Emergency Medicine
DX: K04.7 Periapical abscess without sinus (principal)
CPT/HCPCS: 99281; 99282

== ENCOUNTER 2023-01-24 22:07 | Emergency (ER) | payer MEDICAID, SELFPAY ==
[2023-01-24 22:08] VITALS: BP 134/82; PULSE 80; RESP 18; TEMP 36.6; O2SAT 100; BMI 22.9
--- NOTE | 2023-01-24 22:23 | ED.VIS.DENTA ---
HPI History of Present Illness Chief Complaint: Dental Informant: patient Narrative Narrative: Right lower jaw pain rating up the side of her face since yesterday. No fevers. History of dental caries. Has a dental appointment in 9 days. A month ago seen for left-sided pain that is resolved. Using naproxen and ibuprofen. No allergies. No ear pain. PFSH PFSH Home Medications naproxen 500 mg tablet 500 mg PO BID #14 tabs 12/22/22 [Rx Last Taken Unknown] penicillin V potassium 500 mg tablet 500 mg PO 4X/DAY #40 tabs 01/24/23 [Rx Last Taken Unknown] Allergy/AdvReac Type Severity Reaction Status Date / Time No Known Allergies Allergy Verified 01/24/23 22:09 Family History Mother Diabetes Social History current occupational status: unemployed pets and animals: Yes Smoking Status: Never smoker second hand exposure: Yes alcohol intake: never substance use type: does not use seatbelt use: always do you feel safe at home: Yes additional social history: LEEROY CHAMPAGNE ROS ED Constitutional Constitutional ED: Denies chills, fever(s) or sweats Eyes Eyes: Denies change in vision ENT ENT ED: Reports other Details: Right-sided jaw pain ; Denies dysphagia or sore throat Cardiovascular Cardiovascular: Denies chest pain, leg edema, palpitations or racing heartbeat Respiratory/Chest Respiratory/Chest: Denies cough, dyspnea or dyspnea on exertion Gastrointestinal Gastrointestinal: Denies abdominal pain, diarrhea, nausea or vomiting Genitourinary Genitourinary ED: Denies dysuria, hematuria or urinary frequency Musculoskeletal Musculoskeletal: Denies back pain, extremity pain or neck pain Integumentary Denies rash or wounds Neurologic Neurologic: Denies headache(s), paresthesias or weakness EXAM Physical Exam Const Vital Signs: 01/24/23 22:08 Temperature 97.8 F Temperature Source Temporal Pulse Rate 80 Respiratory Rate 18 Blood Pressure 134/82 H Blood Pressure Mean 99 Pulse Ox 100 Oxygen Delivery Method Room Air Positive well nourished and well developed General Appearance ED: well developed and NAD HEENT Reports moist mucous membranes HEENT Narrative: Dental decay tooth #31, no fluctuance no focal abscess no sublingual edema. Very mild swelling of the jaw. No TMJ tenderness. TMs are normal bilaterally. normocephalic and atraumatic Eyes PERRL, EOMs intact bilaterally and conjunctivae normal General Eye ED: Yes normal appearance of both eyes Neck no lymphadenopathy and supple General: Negative for tenderness Chest Wall Chest: Negative for tenderness Resp normal respiratory effort and normal air movement Effort and Inspection: symmetric chest movement; Negative for respiratory distress Cardio regular rate, regular rhythm and no murmurs Peripheral Pulses: pulses 2+ throughout GI normal to inspection, nondistended, normoactive bowel sounds and non-tender Palpation: Negative for guarding or rebound tenderness present Back/Spine no CVA tenderness and no thoracic nor lumbar tenderness Extremity normal to inspection General Extremety ED: Negative for edema or tenderness General Extremity: Negative for edema Neuro oriented x3 and no sensory deficits noted Sensorium / Orientation: awake and alert Skin no rashes or lesions noted and no wounds MDM MDM MDM Narrative Medical decision making narrative: Interventions / MDM: Differential diagnosis: Dental pain, dental carry Diagnosis considered but do not suspect: No signs of abscess My EKG interpretation: N/A Imaging independently reviewed and interpreted by myself: N/A External documents reviewed: N/A Test considered but not ordered:N/A ED course: Vital stable nontoxic focal dental carry with pain causing radicular symptoms. Started on penicillin given Tylenol in the ED. She will continue NSAIDs. She will keep her dentist appointment 9 days for definitive evaluation and treatment. Re-evaluation: stable Disposition discussed with patient/family/significant other: Case discussed with consulting clinician: N/A Discharge Plan Triage Chief Complaint: Dental ED Provider: Laith Strange Dx/Rx/DC Orders Clinical Impression: Dental caries, Dentalgia Instructions: ED Dental Pain, ED Dental Cavity Prescriptions: New penicillin V potassium 500 mg tablet 500 mg PO 4X/DAY Qty: 40 0RF Discontinued clindamycin HCl [Cleocin HCl] 300 mg capsule 300 mg PO Q6H Qty: 40 0RF No Action naproxen 500 mg tablet 500 mg PO BID Qty: 14 0RF Primary Care Provider: Care Physician,No Primary Referrals: Care Physician,No Primary [Primary Care Provider] - Activity Restrictions/Additional Instructions: Take and finish the biotic as prescribed. Alternate between your naproxen and Tylenol every 6 hours. Follow-up with dentist as scheduled on February 02 for definitive treatment. Disposition Disposition: Home, Self Care
[2023-01-24] MEDS: Penicillin Vk 250 MG Tablet 500 MG PO (22:40)
[2023-01-24] MEDS: Acetaminophen 500 MG Tablet 1000 MG PO (22:40)
== END 2023-01-24 22:46 | disposition home or self-care (01) ==
LOC: ED 22:28
PROVIDERS: Emergency Provider Emergency Medicine; Visit Provider Emergency Medicine
DX: K02.9 Dental caries, unspecified (principal); K08.89 Other specified disorders of teeth and supporting structures
CPT/HCPCS: 99283

== ENCOUNTER → 2024-01-08 | Outpatient (CLI) | payer MEDICAID, SELFPAY ==
[2024-01-12 05:13] LABS: Chlamydia By Nucleic Acid AMP Negative (Negative); Gonococcus By Nucleic Acid AMP Negative (Negative)
[2024-01-15 16:52] LABS: HPV Reflexed? NOT INDICATED
== END | disposition home or self-care (01) ==
LOC: LABSPEC 16:55
PROVIDERS: Referring Provider Registered Nurse; Visit Provider Registered Nurse
DX: Z34.90 Encounter for supervision of normal pregnancy, unspecified, unspecified trimester (principal)
CPT/HCPCS: 87086; 87088; 87491; 87591; 88175; G0145

== ENCOUNTER → 2024-01-14 | Outpatient (CLI) | payer MEDICAID, SELFPAY ==
[2024-01-14 14:33] LABS: hCG Titer Quant., Serum 107368 mIU/mL (1-3)
== END | disposition home or self-care (01) ==
LOC: PAVLAB 13:10
PROVIDERS: Referring Provider Nurse Practitioner Women's Health; Visit Provider Nurse Practitioner Women's Health
DX: O20.9 Hemorrhage in early pregnancy, unspecified (principal); O26.899 Other specified pregnancy related conditions, unspecified trimester; R10.9 Unspecified abdominal pain; Z3A.00 Weeks of gestation of pregnancy not specified
CPT/HCPCS: 36415; 84702

== ENCOUNTER 2024-01-18 21:13 | Emergency (ER) | payer MEDICAID, SELFPAY ==
[2024-01-18 21:14] VITALS: BP 119/58; PULSE 64; PULSE 87; RESP 15; RESP 16; TEMP 36.3; O2SAT 100; O2SAT 99; BMI 21.4
--- NOTE | 2024-01-18 22:33 | EX.ED.DYSGE1 ---
HPI History of Present Illness Chief Complaint: Constipation Informant: patient Narrative Narrative: Patient is a 23-year-old female who is a G2, P1 approximately 9 weeks . She states that today she felt the urge to have a bowel movement and attempted to do so for the past 3 hours without any success. She states that she felt that there was a lump in the rectal region. She states she is unsure if she has a hemorrhoid. She denies any previous abdominal surgery or history of obstruction. However with concern she may have developed a hemorrhoid with her straining she comes in for evaluation. Patient denies any vaginal bleeding or discharge PFSH PFS Medical History care and examination depression Home Medications docosahexaenoic acid 200 mg capsule ( DHA) mg PO 01/01/24 [History Last Taken Unknown] ondansetron 4 mg disintegrating tablet 4 mg PO Q6H PRN nausea and vomiting #20 tabs 01/08/24 [Rx Last Taken Unknown] docusate sodium 100 mg capsule (Colace) 100 mg PO DAILY PRN constipation #20 caps 01/18/24 [Rx Last Taken Unknown] Allergy/AdvReac Type Severity Reaction Status Date / Time No Known Allergies Allergy Verified 01/18/24 21:18 Family History Mother Diabetes Social History adopted: No household members: significant other and children number of children: 1 current occupational status: employed and unemployed current occupation: Direct care for [employer] current occupational exposures/hazards: No pets and animals: Yes pets and animals: cat(s) and dog(s) history of recent travel: No sexually active: Yes Smoking Status: Never smoker second hand exposure: Yes alcohol intake: never substance use type: does not use well-balanced diet: rarely or never caffeine: No eating out: 1-3 times/week during the past year weight has: remained stable what type of physical activity do you participate in: walking seatbelt use: always do you feel safe at home: Yes additional social history: SYDNI- Mateus Aponte: Stay at home dad ROS ROS ED Constitutional Constitutional ED: Denies chills or fever(s) ENT ENT ED: Denies sore throat Cardiovascular Cardiovascular: Denies chest pain Respiratory/Chest Respiratory/Chest: Denies cough or dyspnea Gastrointestinal Gastrointestinal: Reports constipation; Denies abdominal pain, diarrhea, nausea or vomiting Genitourinary Genitourinary ED: Denies dysuria Musculoskeletal Musculoskeletal: Denies myalgias Integumentary Denies rash Neurologic Neurologic: Denies headache(s) Hematologic/Lymphatic Hematologic/Lymphatic: Denies easy bleeding or easy bruising EXAM Physical Exam Const Vital Signs: 01/18/24 21:14 01/18/24 21:14 Temperature 97.3 F L 97.3 F L Temperature Source Temporal Temporal Pulse Rate 87 64 Respiratory Rate 16 15 Blood Pressure 119/58 L 119/58 L Blood Pressure Mean 78 78 Pulse Ox 100 99 Oxygen Delivery Method Room Air Room Air Positive well nourished and well developed General Appearance ED: well developed; Negative for pallor HEENT HEENT Narrative: Normocephalic atraumatic Eyes PERRL and EOMs intact bilaterally General Eye ED: Negative for scleral icterus Neck supple Neck Narrative: No nuchal rigidity or meningeal signs Resp normal respiratory effort and clear to auscultation bilaterally Cardio regular rate and regular rhythm GI non-tender, non-distended and no masses GI Narrative: Abdomen is soft nontender nondistended with hypoactive bowel sounds. No voluntary guarding or rigidity or pulsatile mass. Auscultation: hypoactive bowel sounds Palpation: soft Narrative: Rectal exam shows no masses or external hemorrhoids no anal fissure noted Extremity normal to inspection Extremity Narrative: No asymmetric edema no pitting edema negative Homans' sign bilaterally Neuro oriented x3, CN's II-XII intact bilaterally and no sensory deficits noted Sensorium / Orientation: alert Motor Exam: strength 5/5 throughout Psych mental status grossly normal Skin no rashes or lesions noted, no wounds and skin turgor normal General Skin Exam: Negative for jaundice or pallor MDM MDM MDM Narrative Medical decision making narrative: Patient arrived to the ER with stable vitals and a soft nonsurgical abdomen and denied any vaginal bleeding or discharge concerning for complication. She reported constipation and a lump in the rectal region. Differential diagnosis is for constipation versus external hemorrhoid versus anal fissure versus perirectal abscess. Physical exam showed no sign of abscess fissure or hemorrhoid. Therefore patient most likely has -induced constipation. As abdominal exam does not indicate any concern for obstruction or infection I do not feel there is need for further evaluation and she be given stool softener and discharged home. History & Record Review Discussion w/independent historian: Patient Discharge Plan Triage Chief Complaint: Constipation ED Provider: Fredrick Basurto Dx/Rx/DC Orders Clinical Impression: Constipation, Instructions: ED Constipation (Adult) Prescriptions: New docusate sodium [Colace] 100 mg capsule 100 mg PO DAILY PRN (Reason: constipation) Qty: 20 0RF No Action DHA 200 mg capsule PO ondansetron 4 mg tablet,disintegrating 4 mg PO Q6H PRN (Reason: nausea and vomiting) Qty: 20 4RF Primary Care Provider: Care Physician,No Primary Referrals: Ophelia Aguirre DO [Med Staff - Active Staff] - Care Physician,No Primary [Primary Care Provider] - Disposition Disposition: Home, Self Care Discharge Date/Time: 01/18/24 23:01
[2024-01-18] MEDS: Docusate Sodium 100 MG Capsule 200 MG PO (22:56)
== END 2024-01-18 23:01 | disposition home or self-care (01) ==
PROVIDERS: Emergency Provider Emergency Medicine; Visit Provider Emergency Medicine
DX: O99.611 Diseases of the digestive system complicating pregnancy, first trimester (principal); K59.00 Constipation, unspecified; Z3A.09 9 weeks gestation of pregnancy
CPT/HCPCS: 99282

== ENCOUNTER → 2024-02-03 | Outpatient (CLI) | payer MEDICAID, SELFPAY ==
[2024-02-03 13:20] LABS: Absolute Lymphocyte Count 1.22 X10^3/uL (0.83-4.51); Absolute Neutrophil Count 4.3 X10^3/uL (2.0-7.7); Basophil# 0.03 X10^3/uL; Basophil% 0.5 % (0-1); Eosinophil# 0.02 X10^3/uL; Eosinophils% 0.3 % (0-5); Hematocrit 37.6 % (37-47); Hemoglobin 12.2 g/dL (12.0-15.0); Lymphocyte # 1.22 X10^3/ul (0.83-4.51); Lymphocyte % 20.5 % (19-41); Mean Corp Hgb Conc 32.4 g/dL (32-36); Mean Corpuscular Hgb 28.6 pg (27.0-32.0); Mean Corpuscular Volume 88.1 fL (81-99); Mean Platelet Vol. 11.8 fl (6.2-12.0); Monocyte# 0.36 X10^3/uL; NRBC Flagged by Analyzer 0 % (0-5); Neutrophil # 4.31 X10^3/uL (2.7-7.7); Neutrophil % 72.4 % (47-70); Platelet Count 205 K/mm3 (150-450); RBC Distribution Width SD 41.6 fl (35.1-43.9); Red Blood Count 4.27 M/mm3 (4.2-5.4)
[2024-02-03 14:25] LABS: HIV - WCH Non-Reactive (Nonreactive); Hepatitis B Surface Antigen Non-Reactive (Nonreactive); Hepatitis C Antibody Non-Reactive (Nonreactive); Rubella IgG Equiv (Nonreactive); Syphilis Antibodies Non-reactive
== END | disposition home or self-care (01) ==
PROVIDERS: Referring Provider Registered Nurse; Visit Provider Registered Nurse
DX: Z34.90 Encounter for supervision of normal pregnancy, unspecified, unspecified trimester (principal)
CPT/HCPCS: 36415; 85025; 86703; 86762; 86780; 86803; 86850; 86900; 86901; 87340

== ENCOUNTER → 2024-04-05 | Outpatient (CLI) | payer MEDICAID, SELFPAY ==
--- NOTE | 2024-04-05 15:15 | US_ITS ---
EXAM: US SECOND OR THIRD TRIMESTER , TRANSABDOMINAL CLINICAL INDICATION: anatomy TECHNIQUE: Transabdominal obstetrical ultrasound of the maternal pelvis and a second or third trimester with image documentation. COMPARISON: No relevant prior studies available. FINDINGS: FETUS: There is an intrauterine gestation. HEART RATE: heart rate is 135 bpm. PRESENTATION: The fetus is in the transverse position. PLACENTA: The placenta is posterior. No placenta previa. No abruption. AMNIOTIC FLUID: Unremarkable. ANATOMY: Four-chamber heart, diaphragm, stomach, three-vessel cord, kidneys bladder, spine and extremities were all visualized. The cord insertion is slightly eccentric being 2 cm from the edge of the placenta. The lateral ventricles, choroid plexus, cerebellum, face nose and lips were all visualized. BIOMETRICS GESTATIONAL AGE: Gestational age 20 weeks 4 days. MARGARITA: MARGARITA 08/19/2024. EFW: Estimated weight 366 g. BPD: Biparietal diameter 4.4 cm age 19 weeks 3 days, 10th percentile. HC: Head circumference 17.8 cm age 20 weeks 2 days, 28 percentile. AC: Abdominal circumference 15.8 cm age 20 weeks 6 days, 55 percentile. FL: Femur length 3.4 cm age 24 days, 44th percentile. MATERNAL: UTERUS: Unremarkable. No myometrial mass. CERVIX: The cervix measures 2.9 cm. ADNEXA: Unremarkable. No adnexal masses. FREE FLUID: Largest fluid pocket is 4.1 x 3.3 cm. US/OB Anatomy w/ Transvaginal IMPRESSION: Intrauterine gestation with an average ultrasound age of 20 weeks 0 days and ultrasound estimated due date of 08/23/2024. heart rate is 135 bpm. Electronically Signed: Fadi Madera MD at 17:54 EDT ,
== END | disposition home or self-care (01) ==
LOC: US 15:15
PROVIDERS: Referring Provider Obstetrics & Gynecology; Visit Provider Obstetrics & Gynecology
DX: O09.91 Supervision of high risk pregnancy, unspecified, first trimester (principal)
CPT/HCPCS: 76805; 76817

== ENCOUNTER → 2024-05-06 | Outpatient (CLI) | payer MEDICAID, SELFPAY ==
--- NOTE | 2024-05-06 15:23 | US_ITS ---
EXAM: US , LIMITED CLINICAL INDICATION: growth TECHNIQUE: Real-time limited ultrasound of the maternal uterus with image documentation. COMPARISON: April 05, 2024. measurements corresponded to 20 weeks 4 days sonographic EGA on prior exam. FINDINGS: PLACENTA: Posterior, grade 1. No abruption. Cervix: Not well seen. RADHA: 4 quadrant RADHA 16.8 cm, largest pocket 4.6 cm. FETUS: Heart rate 145 bpm. Cephalic. Full anatomic survey not performed. Nose-lips are demonstrated. BIOMETRICS: BPD: 24 weeks 3 days. HC: 24 weeks 2 days. AC: 24 weeks 0 days. FL: 24 weeks 3 days. Sonographic EGA: 24 weeks 2 days. Normal interval growth. This corresponds well to 25 weeks gestation by LMP. Sonographic MARGARITA: August 24, 2024. EFW: 674 g +/- 101. This corresponds to 14.2 percentile. Previously 47th percentile. US/OB Limited With Biometrics IMPRESSION: Live intrauterine . Normal and symmetric interval change in biometry measurements. 14th percentile weight. Electronically Signed: Georgiana Wynne MD at 4:40 EDT ,
== END | disposition home or self-care (01) ==
LOC: OPUS 15:23
PROVIDERS: Referring Provider Obstetrics & Gynecology; Visit Provider Obstetrics & Gynecology
DX: O09.91 Supervision of high risk pregnancy, unspecified, first trimester (principal); Z3A.00 Weeks of gestation of pregnancy not specified
CPT/HCPCS: 76816

== ENCOUNTER → 2024-06-03 | Outpatient (CLI) | payer MEDICAID, SELFPAY ==
[2024-06-03 14:32] LABS: Absolute Lymphocyte Count 1.04 X10^3/uL (0.83-4.51); Absolute Neutrophil Count 6.3 X10^3/uL (2.0-7.7); Basophil# 0.06 X10^3/uL; Basophil% 0.8 % (0-1); Eosinophil# 0.03 X10^3/uL; Eosinophils% 0.4 % (0-5); Hematocrit 30.5 % (37-47); Lymphocyte # 1.04 X10^3/ul (0.83-4.51); Mean Corp Hgb Conc 32.8 g/dL (32-36); Mean Corpuscular Hgb 29.7 pg (27.0-32.0); Mean Corpuscular Volume 90.5 fL (81-99); Mean Platelet Vol. 12.2 fl (6.2-12.0); Monocyte# 0.45 X10^3/uL; Monocyte% 5.6 % (0-10); NRBC Flagged by Analyzer 0 % (0-5); Neutrophil # 6.32 X10^3/uL (2.7-7.7); Neutrophil % 78.9 % (47-70); Platelet Count 168 K/mm3 (150-450); RBC Distribution Width SD 42.9 fl (35.1-43.9); Red Blood Count 3.37 M/mm3 (4.2-5.4)
[2024-06-03 15:10] LABS: Glucose Challenge Gest 1H 50g 106 mg/dL (70-140)
--- NOTE | 2024-06-03 15:22 | US_ITS ---
STUDY: SECOND AND THIRD TRIMESTER OBSTETRICAL ULTRASOUND - LIMITED REASON FOR EXAM: Female, 23 years old growth LMP: 11/13/2023 PRIOR ULTRASOUND: 05/06/2024. TECHNIQUE: Transabdominal TECHNICAL QUALITY: Adequate. FINDINGS: There is a single intrauterine fetus. The fetus is in a cephalic presentation. There is demonstrated cardiac activity with a heart rate of 144 bpm. There is a normal amniotic fluid volume. The largest amniotic fluid pocket measures 4.0 cm. The amniotic fluid index (RADHA) is 13.1 cm. The placenta is posterior in location and is not low lying. There are Grade 1 placental changes. The cervix was not adequately seen. BIOMETRY: BPD: 7.3: 29 weeks, 2 days HC: 9.2: 28 weeks, 2 days AC: 23.5: 27 weeks, 6 days FL: 5.2: 27 weeks, 4 days Age by LMP: 29 weeks, 0 days. MARGARITA by LMP: 08/19/2024. age by prior US: weeks, days. MARGARITA by prior US: . age by current US: 28 weeks, 3 days. MARGARITA by current US: 08/23/2024. Estimated weight: 1116 grams, +/- 174 grams, 11.6 percentile. Gender: US/OB Limited With Biometrics IMPRESSION: Single live fetus in a vertex presentation. survey not performed on this exam. Placenta is grade 1 and is not low-lying. Cervix is closed. age by current US: 28 weeks, 3 days. MARGARITA by current US: 08/23/2024. Estimated weight: 1116 grams, +/- 174 grams, 11.6 percentile. Electronically Signed: Mcikey Mueller MD at 22:57 EDT ,
[2024-06-03 15:42] LABS: HIV - WCH Non-Reactive (Nonreactive); Syphilis Antibodies Non-reactive
== END | disposition home or self-care (01) ==
LOC: LAB 13:49
PROVIDERS: Referring Provider Obstetrics & Gynecology; Visit Provider Obstetrics & Gynecology
DX: Z13.1 Encounter for screening for diabetes mellitus (principal); O09.91 Supervision of high risk pregnancy, unspecified, first trimester; Z3A.00 Weeks of gestation of pregnancy not specified
CPT/HCPCS: 36415; 76816; 82950; 85025; 86703; 86780

== ENCOUNTER → 2024-06-21 | Outpatient (CLI) | payer MEDICAID, SELFPAY ==
[2024-06-21 14:10] LABS: Absolute Lymphocyte Count 1.06 X10^3/uL (0.83-4.51); Absolute Neutrophil Count 5.9 X10^3/uL (2.0-7.7); Basophil# 0.04 X10^3/uL; Basophil% 0.5 % (0-1); Eosinophil# 0.04 X10^3/uL; Eosinophils% 0.5 % (0-5); Hematocrit 30.8 % (37-47); Hemoglobin 10.2 g/dL (12.0-15.0); Lymphocyte # 1.06 X10^3/ul (0.83-4.51); Lymphocyte % 13.7 % (19-41); Mean Corp Hgb Conc 33.1 g/dL (32-36); Mean Corpuscular Hgb 29.5 pg (27.0-32.0); Mean Platelet Vol. 11.8 fl (6.2-12.0); Monocyte# 0.64 X10^3/uL; Monocyte% 8.3 % (0-10); NRBC Flagged by Analyzer 0 % (0-5); Neutrophil # 5.88 X10^3/uL (2.7-7.7); Neutrophil % 75.8 % (47-70); Platelet Count 160 K/mm3 (150-450); RBC Distribution Width CV 12.6 % (11.6-14.6); RBC Distribution Width SD 40.5 fl (35.1-43.9); Red Blood Count 3.46 M/mm3 (4.2-5.4); White Blood Count 7.8 K/mm3 (4.4-11.0)
[2024-06-21 14:34] LABS: ALB/GLOB Ratio 0.7 RATIO (0.9-2.4); AST(SGOT) 11 U/L (15-37); Alanine Aminotransfer ALT/SGPT 11 U/L (13-56); Albumin, Serum 2.7 g/dL (3.2-5.0); Alkaline Phosphatase 99 U/L (45-117); Anion Gap 6 (5-15); BUN 6 mg/dL (7-18); BUN/Creat Ratio 12.6 RATIO (10-20); Calcium,Total 8.6 mg/dL (8.5-10.1); Chloride 106 mmol/L (98-107); Creatinine, Serum 0.48 mg/dL (0.55-1.02); EST Glomerular Filtration Rate 171 mL/min (>60); Est Glom Filt Rate - Afr Amer 207 mL/min (>60); Ferritin 5 ng/mL (8-252); Globulin 4.1 g/dL (2.2-4.2); Glucose 84 mg/dL (74-106); Iron Binding Capacity,Total 510 ug/dL (250-450); Potassium 3.7 mmol/L (3.5-5.1); Protein, Total 6.8 g/dL (6.4-8.2); Sodium Level 136 mmol/L (136-145)
[2024-06-21 15:43] LABS: Vitamin B12 320 pg/mL (211-911)
== END | disposition home or self-care (01) ==
LOC: PAVLAB 13:56
PROVIDERS: Referring Provider Obstetrics & Gynecology; Visit Provider Obstetrics & Gynecology
DX: O99.019 Anemia complicating pregnancy, unspecified trimester (principal); R42 Dizziness and giddiness; Z3A.00 Weeks of gestation of pregnancy not specified; O99.891 Other specified diseases and conditions complicating pregnancy
CPT/HCPCS: 36415; 80053; 82607; 82728; 83550; 85025

== ENCOUNTER → 2024-07-29 | Outpatient (CLI) | payer MEDICAID, SELFPAY ==
--- NOTE | 2024-07-29 13:26 | US_ITS ---
EXAM: US , LIMITED CLINICAL INDICATION: growth TECHNIQUE: Real-time limited ultrasound of the maternal uterus with image documentation. COMPARISON: 06/03/2024. FINDINGS: FETUS: Single intrauterine gestation. GESTATIONAL AGE: Composite gestational age is 36 weeks four days with appropriate interval growth since previous exam. MARGARITA: 08/22/2024. EFW: Estimated weight is 3196 g corresponding to the 66th percentile. BPD: 35 weeks six days. HC: 36 weeks five days. AC: 37 weeks six days. FL: 37 weeks zero days. POSITION: Cephalic presentation. HEART RATE: heart rate is 133 bpm. PLACENTA: The placenta is posterior without placenta previa. AMNIOTIC FLUID: Amniotic fluid index is is 10.4 cm with a maximum vertical pocket 4.6 cm. CERVIX: Cervix not visualized. US/OB Limited With Biometrics IMPRESSION: Single intrauterine gestation at 36 weeks four days with appropriate interval growth since the previous examination. Electronically Signed: Ishaan Garcia MD at 1:17 EDT ,
== END | disposition home or self-care (01) ==
PROVIDERS: Referring Provider Advanced Practice Midwife; Visit Provider Advanced Practice Midwife
DX: Z36.89 Encounter for other specified antenatal screening (principal); O09.91 Supervision of high risk pregnancy, unspecified, first trimester; Z3A.00 Weeks of gestation of pregnancy not specified
CPT/HCPCS: 76816; 87081; 87186

== ENCOUNTER 2024-08-13 15:55 | Inpatient (IN) | payer MEDICAID, SELFPAY ==
[2024-08-13] VITALS (70 sets, daily range): BP systolic 109–157; BP diastolic 57–83; PULSE 84–136; RESP 16; TEMP 36.9–37.2; O2SAT 86–100; BMI 27.0
[2024-08-13 15:50] LABS: ROM Internal Control Test YES-OK TO RESULT pt. (Internal QC)
[2024-08-13 15:52] LABS: ROM Patient Test POSITIVE (Negative)
--- NOTE | 2024-08-13 16:29 | HP.PCM.OB_ITS ---
HPI - General General Date of Admission: 08/13/24 HPI Narrative JIA BEAR, is a 24 F who presents at 39.1 with leaking of fluid noted around 3pm. no vb/consistent ctx. good fm. gbs positive. Maternal Data Information MARGARITA Calculator Estimated Delivery Date Method Current WG Current Estimate 08/19/24 LMP (Certain) 39w 1d PFSH PFSH Medical History care and examination depression Home Medications ?Medication ?Instructions ?Recorded ?Last Taken ?Type docosahexaenoic acid 200 mg 1 mg PO DAILY 01/01/24 08/12/24 History capsule ( DHA) Allergy/AdvReac Type Severity Reaction Status Date / Time No Known Allergies Allergy Verified 08/11/24 14:56 Family History Mother Diabetes Social History adopted: No household members: significant other and children number of children: 1 current occupational status: employed and unemployed current occupation: Direct care for [employer] current occupational exposures/hazards: No pets and animals: Yes pets and animals: cat(s) and dog(s) history of recent travel: No sexually active: Yes Smoking Status: Never smoker second hand exposure: Yes alcohol intake: never substance use type: does not use well-balanced diet: rarely or never caffeine: No eating out: 1-3 times/week during the past year weight has: remained stable what type of physical activity do you participate in: walking seatbelt use: always do you feel safe at home: Yes additional social history: SYDNI- Mateus Aponte: 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 Date Name GA/Weeks Outcome Route Bth Weight Gen Labor Lgth Anesthesia Del Locatn Provider FOB 05/05/20 4 spontaneous 01/10/21 Deann 40 live - full term 8lbs Female epi dural [facility] Marcanthony Delivery Date: 01/10/21 Last Updated by: Kirstin BECKHAM Visit Details Expected Delivery Route/Plan Labor Preferences- CB/BF classes: [] labor support person: [] labor intervention preferences: [] pain management options preferred: [] cut cord/dad catch: [] : [] PP control planned: [] discussed possible routes of delivery and associated risks: [] special requests: [] Plans Covid status: [] Flu vaccine: [] Tdap vaccine: given Rhogam: na LARC form signed: declineds movement and labor precautions reviewed. Problem list reviewed and updated with the most current plan of care details and appropriate orders placed. Relevant counseling for the gestational age provided. Continue routine care and follow up unless otherwise noted in visit notes/problem list details OB Flowsheet Initial Weight: 134 lb Date -?-?-?-?-?-?-?-?-?-?-?-?- EGA Weight BP Urine Prot -?-?-?-?-?-?-?-?-?-?-?-?- Glucose FHR FuHt Pres Dilation -?-?-?--?-?-?-?-?-?-?-?-?- Effaced St Visit Note 01/08/24 -?-?-?-?-?-?-?-?-?-?-?-?- 8w 0d 134 lb 6 oz (+6 oz) 116/79 -?-?-?-?-?-?-?-?-?-?-?-?- 163 -?-?-?-?-?-?-?-?-?-?-?-?- LC- crl con with lmp. desires nipt. 01/14/24 -?-?-?-?-?-?-?-?-?-?-?-?- 8w 6d 134 lb (+0 oz) 128/72 Negative -?-?-?-?-?-?-?-?-?-?-?-?- Negative 160 -?-?-?-?-?-?-?-?-?-?-?-?- -Work in for b right red vag bleeding this AM. Small amount and none since. Brief US confirm FHT 02/03/24 -?-?-?-?-?-?-?-?-?-?-?-?- 11w 5d 136 lb 8 oz (+2 lb 8 oz) 117/72 Negative -?-?-?-?-?-?-?-?-?-?-?-?- Negative 160 -?-?-?-?-?-?-?-?-?-?-?-?- MH-No further VB . Doing well. Brief US to confirm FHT. PN labs today 03/07/24 -?-?-?-?-?-?-?-?-?-?-?-?- 16w 3d 138 lb (+4 lb) 104/70 Negative -?-?-?-?-?-?-?-?-?-?-?-?- Negative 150 -?-?-?-?-?-?-?-?-?-?-?-?- SM- no vb lof no ctx. discussed proof of letter to [facility], 04/05/24 -?-?-?-?-?-?-?-?-?-?-?-?- 20w 4d 144 lb (+10 lb) 110/68 Negative -?-?-?-?-?-?-?-?-?-?-?-?- Negative 145 20 -?-?-?-?-?-?-?-?-?-?-?-?- KW- no vb/crampi ng. +flutters. anatomy US. today. 05/11/24 -?-?-?-?-?-?-?-?-?-?-?-?- 25w 5d 155 lb (+21 lb) 103/65 Negative -?-?-?-?-?-?-?-?-?-?-?-?- Negative 145 24 -?-?-?-?-?-?-?-?-?-?-?-?- SM- no vb lof go od fm no regular ctx 06/03/24 -?-?-?-?-?-?-?-?-?-?-?-?- 29w 0d 162 lb (+28 lb) 120/63 Trace -?-?-?-?-?-?-?-?-?-?-?-?- Negative 140 29 -?-?-?-?-?-?-?-?-?-?-?-?- SM_ no vb lof go od fm no regular ctx 06/21/24 -?-?-?-?-?-?-?-?-?-?-?-?- 31w 4d 163 lb 8 oz (+29 lb 8 oz) 110/62 Negative -?-?-?-?-?-?-?-?-?-?-?-?- Negative 147 31 -?-?-?-?-?-?-?-?-?-?-?-?- JV- no lof, vagi nal bleeding, or dec fm. c/o feeling dizzy for last 2 weeks. no irregular heart rate , chest pain, or persistent SOB. 07/08/24 -?-?-?-?-?-?-?-?-?-?-?-?- 34w 0d 167 lb (+33 lb) 105/71 Negative -?-?-?-?-?-?-?-?-?-?-?-?- Negative 148 33 -?-?-?-?--?-?-?-?-?-?-?-?- KW- no vb/lof/ct x. good fm. LARC done. FLU done 07/21/24 -?-?-?-?-?-?-?-?-?-?-?-?- 35w 6d 170 lb 4 oz (+36 lb 4 oz) 119/77 Negative -?-?-?-?-?-?-?-?-?-?-?-?- Negative 135 34 -?-?-?-?-?-?-?-?-?-?-?-?- KW- no vb/lof/ct x. good fm. growth US ordered. last US was aug and 11%. encouraged MFM US but patient refused. will get with [facility]. CBC ordered for anemia. 07/29/24 -?-?-?-?-?-?-?-?-?-?-?-?- 37w 0d 172 lb (+38 lb) 132/83 Negative -?-?-?-?-?-?-?-?-?-?-?-?- Negative 135 37 Cephalic 1 .5 -?-?-?-?-?-?-?-?-?-?-?-?- SM- no vb lof go od fm no regular ctx discussed starting maternity leave now 08/05/24 -?-?-?-?-?-?-?-?-?-?-?-?- 38w 0d 171 lb (+37 lb) 105/65 Negative -?-?-?-?-?-?-?-?-?-?-?-?- Negative 130 38 Cephalic 1 .5 -?-?-?-?-?-?-?-?-?-?-?-?- 60 -1 KW- no vb/ lof/reg ctx. good fm. maternity leave letter sent to work. 08/11/24 -?-?-?-?-?-?-?-?-?-?-?-?- 38w 6d 172 lb (+38 lb) 108/64 Negative -?-?-?-?-?-?-?-?-?-?-?-?- Negative 130 38 Cephalic 2 -?-?-?-?-?-?-?-?-?-?-?-?- 60 -1 SM- no vb lof good fm no regular ctx. NST FHR Rate Baby A Baseline: 125 Variability:: Moderate Accelerations:: 15 x 15 Decelerations:: None NST Reactive:: Yes FHR Category:: Category I Uterine Activity:: irregular ROS Cardiovascular Cardiovascular: Denies abdominal pain, chest pain, diaphoresis or dyspnea Respiratory/Chest Respiratory/Chest: Denies change in mental status, chest congestion, chest tightness, cough, shortness of breath at rest, shortness of breath with exertion, breast mass, breast pain, breast skin changes, breast swelling, change in breast shape or nipple discharge Genitourinary Genitourinary: Reports change in urinary stream Musculoskeletal Musculoskeletal: Reports none Integumentary Integumentary: Reports none Neurologic Neurologic: Reports none Psychiatric Psychiatric: Reports none Endocrine Endocrinology: Reports none Hematologic/Lymphatic Hematologic/Lymphatic: Reports none Allergic/Immunologic Allergic/Immunologic: Reports none Vital Signs Vital Signs Vital Signs: 08/13/24 15:05 08/13/24 15:05 08/13/24 15:05 Temperature Temperature Source Temporal Pulse Rate 125 H Respiratory Rate 16 Blood Pressure BP Systolic BP Diastolic Pulse Ox 08/13/24 15:05 08/13/24 15:06 08/13/24 15:06 Temperature 98.5 F Temperature Source Pulse Rate 136 H Respiratory Rate Blood Pressure 132/71 H BP Systolic 132 BP Diastolic 71 Pulse Ox 08/13/24 15:06 08/13/24 15:20 08/13/24 15:20 Temperature Temperature Source Pulse Rate 108 H Respiratory Rate Blood Pressure BP Systolic BP Diastolic Pulse Ox 97 96 08/13/24 15:25 08/13/24 15:25 08/13/24 15:30 Temperature Temperature Source Pulse Rate 134 H 110 H Respiratory Rate Blood Pressure BP Systolic BP Diastolic Pulse Ox 99 08/13/24 15:30 08/13/24 15:35 08/13/24 15:35 Temperature Temperature Source Pulse Rate 122 H Respiratory Rate Blood Pressure BP Systolic BP Diastolic Pulse Ox 98 98 08/13/24 15:40 08/13/24 15:40 08/13/24 15:45 Temperature Temperature Source Pulse Rate 114 H 124 H Respiratory Rate Blood Pressure BP Systolic BP Diastolic Pulse Ox 98 08/13/24 15:45 08/13/24 15:50 08/13/24 15:50 Temperature Temperature Source Pulse Rate 96 Respiratory Rate Blood Pressure BP Systolic BP Diastolic Pulse Ox 99 98 08/13/24 15:55 08/13/24 15:55 08/13/24 16:00 Temperature Temperature Source Pulse Rate 103 H 97 Respiratory Rate Blood Pressure BP Systolic BP Diastolic Pulse Ox 98 08/13/24 16:00 08/13/24 16:05 08/13/24 16:05 Temperature Temperature Source Pulse Rate 109 H Respiratory Rate Blood Pressure BP Systolic BP Diastolic Pulse Ox 97 100 08/13/24 16:10 08/13/24 16:10 08/13/24 16:15 Temperature Temperature Source Pulse Rate 103 H 105 H Respiratory Rate Blood Pressure BP Systolic BP Diastolic Pulse Ox 98 08/13/24 16:15 08/13/24 16:20 08/13/24 16:20 Temperature Temperature Source Pulse Rate 108 H Respiratory Rate Blood Pressure BP Systolic BP Diastolic Pulse Ox 99 99 Weight Weight: 172 lb 6.4 oz Body Mass Index (BMI) 27.0 Physical Exam Const alert, oriented x3 and no apparent distress General Appearance: cooperative, comfortable and well kempt Orientation / Consciousness: awake and oriented to person Exam Limitations: no limitations HEENT normocephalic Neck full ROM Chest inspection of chest normal Resp normal respiratory effort, normal air movement and no retractions Effort and Inspection: able to speak in complete sentences and symmetric chest movement Cardio regular rate Peripheral Pulses: pulses 2+ throughout GI normal to inspection, nondistended, normoactive bowel sounds Inspection: gravid no CVA tenderness and appearance of the vagina normal External Female Exam: normal appearance of the urethra; Negative for external lesion OB / External & Speculum: external exam normal Manual OB Exam: estimated gestational size appropriate and presentation cephalic Uterus Palpation: Negative for uterus tender Extremity normal to inspection Skin no rashes or lesions noted Neuro deep tendon reflexes 2+ bilaterally and gait normal Motor Exam: strength 5/5 throughout and clonus absent Psych Activity / Motor Behavior: appropriate eye contact Speech: normal speech Labs Labs Labs: Blood Type A POSITIVE Antibody Screen NEGATIVE Hct 30.8 % (37-47) L Hgb 10.2 g/dL (12.0-15.0) L Obstetrics Ultrasound Syphilis Total Ab Non-reactive VZV IgG Antibody 1038 index (Immune >165) Rubella IgG Antibody Equiv (Nonreactive) Hep Bs Antigen Non-Reactive (Nonreactive) Hepatitis C Antibody Non-Reactive (Nonreactive) Chlamydia DNA (ELSA) Negative (Negative) N.gonorrhoeae DNA (ELSA) Negative (Negative) HIV 1&2 Antibody Non-Reactive (Nonreactive) Glucose 1 Hr 50 gm 106 mg/dL (70-140) Rhogam given: No Assessment & Plan (1) SROM (spontaneous rupture of membranes): COMMENT: 1500 clear fluid PLAN: admit to [facility] -pitocin augmentation in 4 hours if no cervical change. (2) GBS (group B Streptococcus carrier), +RV culture, currently : COMMENT: PCN in labor (3) Anemia affecting : COMMENT: OTC iron (4) Rubella non-immune status, antepartum: COMMENT: offer MMR in pp (5) History of depression, currently : COMMENT: stable. (6) Supervision of high-risk : QUALIFIERS: Trimester: first trimester Qualified Code(s): O09.91 - Supervision of high risk , unspecified, first trimester COMMENT: PRR , MARGARITA 08/19, PC: SYDNI Zacarias (7) : QUALIFIERS: Weeks of gestation: 38 weeks Qualified Code(s): Z3A.38 - 38 weeks gestation of COMMENT: Discussed carrier/genetic testing, desires. nl anatomy PLAN: Plan Patient presents SROM with irregular contractions, plan expectant management for , pitocin/AROM PRN if needed. Pain management: plans epidural. GBS positive plan IV PCN. Management of any complications: none I have reviewed the [facility] and made any clinically relevant updates. Dr. Mosqueda updated on admission, exam and poc and agrees with primary midwifery management. readily available.
[2024-08-13] MEDS: Lactated Ringers 1,000 ML 50 ML IV (16:51)
[2024-08-13] MEDS: Penicillin G Pot 5,000,000 UNITS in 0.9% Normal Saline (100mL MB+) 100 ML 150 UNITS IV (16:56)
[2024-08-13 17:06] LABS: Absolute Lymphocyte Count 1.13 X10^3/uL (0.83-4.51); Absolute Neutrophil Count 9.6 X10^3/uL (2.0-7.7); Basophil# 0.04 X10^3/uL; Basophil% 0.3 % (0-1); Eosinophil# 0.02 X10^3/uL; Eosinophils% 0.2 % (0-5); Hematocrit 29.4 % (37-47); Hemoglobin 9.6 g/dL (12.0-15.0); Lymphocyte # 1.13 X10^3/ul (0.83-4.51); Lymphocyte % 9.7 % (19-41); Mean Corp Hgb Conc 32.7 g/dL (32-36); Mean Corpuscular Hgb 28.2 pg (27.0-32.0); Mean Corpuscular Volume 86.5 fL (81-99); Mean Platelet Vol. 12.2 fl (6.2-12.0); Monocyte# 0.75 X10^3/uL; Monocyte% 6.4 % (0-10); NRBC Flagged by Analyzer 0 % (0-5); Neutrophil # 9.55 X10^3/uL (2.7-7.7); Neutrophil % 82.1 % (47-70); Platelet Count 177 K/mm3 (150-450); RBC Distribution Width SD 43.5 fl (35.1-43.9); White Blood Count 11.6 K/mm3 (4.4-11.0)
[2024-08-13] MEDS: Lactated Ringers 1,000 ML 999 ML IV (17:25)
[2024-08-13 17:39] LABS: Syphilis Antibodies Nonreactive
[2024-08-13] MEDS: Penicillin G 3,000,000 Units 50 ML 100 UNITS IV (21:05)
[2024-08-13] MEDS: Ondansetron 4 MG/2 ML Vial IV (23:16)
[2024-08-13] MEDS: Oxytocin 15 Units/NS 250ml 15 UNITS/250 ML IV.SOLN 2 UNITS IV (23:19)
[2024-08-14] VITALS (39 sets, daily range): BP systolic 104–130; BP diastolic 53–80; PULSE 75–106; RESP 14–18; TEMP 36.3–37.2; O2SAT 97–98
[2024-08-14] MEDS: fentaNYL-bupivacaine (epidural) 100 ML BAG EPIDURAL (00:40)
[2024-08-14] MEDS: Penicillin G 3,000,000 Units 50 ML 100 UNITS IV (01:16)
[2024-08-14] MEDS: Lactated Ringers 1,000 ML 50 ML IV (01:30)
[2024-08-14] MEDS: Ondansetron 4 MG/2 ML Vial IV (03:38)
[2024-08-14] MEDS: Oxytocin 15 Units/NS 250ml 15 UNITS/250 ML IV.SOLN 334 UNITS IV (05:36)
--- NOTE | 2024-08-14 05:41 | EX.PCM.OBVAG ---
Assessment & Plan (1) (spontaneous vaginal delivery): COMMENT: LC Radhika 39weeks SROM (2) SROM (spontaneous rupture of membranes): COMMENT: 1500 clear fluid (3) GBS (group B Streptococcus carrier), +RV culture, currently : COMMENT: PCN in labor (4) Rubella non-immune status, antepartum: COMMENT: offer MMR in pp (5) Anemia affecting : COMMENT: OTC iron Maternal Data Information MARGARITA Calculator Estimated Delivery Date Method Current WG Current Estimate 08/19/24 LMP (Certain) 39w 2d Final MARGARITA: 08/19/24 Final MARGARITA Source: US >20 weeks Gestational age: 39.2 Vaginal Delivery Maternal Presentation Maternal Presentation: Spontaneous Rupture of Membranes Maternal Presentation: at 39.1 with SROM at 1500 clear fluid. augmented with pitocin to achieve full dilation. Vaginal Delivery Information Procedure Performed: Spontaneous Vaginal Delivery Pre-Procedure Diagnosis: see problem list Post-Procedure Diagnosis: Type of anesthesia: Epidural Estimated Blood Loss: 50 Time of Delivery: 05:31 Findings Description of procedure: Patient began pushing and delivered the head in the SONAL presentation. The head was delivered atraumatically. The anterior and posterior shoulders delivered without complication followed by the rest of the infant and the infant was placed on the maternal abdomen. Delayed cord clamping was employed for approximately 60 seconds. Cord was clamped and cut and gentle traction was applied to the cord and the placenta delivered spontaneously immediately following it was noted to be intact with three-vessel cord. The perineum and vagina were inspected and noted to have no laceration. EBL was 50cc. Patient and infant tolerated delivery well. Dr. Mosqueda updated on delivery. routine pp orders. Presentation: Vertex Amniotic Membrane Rupture Type: Spontaneous Amniotic Fluid Description: Clear Placental Delivery Description: Spontaneous Placenta Disposition: [facility] Cord Vessel Description: 3 Vessels Cord Entanglement: None Infant A Gender: Female (1 minute): 8 (5 minute): 9 Delayed Cord Clamping: Yes Post Vaginal Deli Medications given after delivery: IM Pitocin Episiotomy Description: None Laceration: None Procedures Urinary/Genital [id number]: [id number] Vaginal Delivery [facility]
--- NOTE | 2024-08-14 05:44 | DCINST_ITS ---
Discharge Instructions Diet Discharge Diet: No restrictions Activity Discharge Activity: May Not Drive and May Shower May resume sexual activity in: 6 weeks Weight Bearing Status: Full weight bearing Dressing / Incision Call your doctor if your incision/area has: Sudden Increased Bleeding, Increased Pain/ Swelling and Foul Smelling Discharge Call your doctor if you observe: Fever of 101 or Higher, Numbness or Tingling, Change in Color, Inability to urinate, Inability to have a bowel movement, Using more than 1 pad per hour, Shortness of breath, Dizziness, Fainting spells, Chest pain, Calf discomfort and Uncontrolled pain Follow Up Care Please Follow Up With: Citlali Meeks CNM When: 6 weeks , please call office to make an appointment. Congratulations on the of your baby! Test Results: Test results from this visit will be discussed in further detail at your follow- up appointment, if applicable. Discharge Plan Admission Admit Date/Time: 08/13/24 15:55 Attending Provider: Citlali Meeks Primary Care Provider: Care Physician,Dixie Primary Discharge Orders/Prescriptions Prescriptions: No Action DHA 200 mg capsule 1 mg PO DAILY Referrals / Follow Up: Care Physician,No Primary [Primary Care Provider] -
[2024-08-14] MEDS: Oxytocin 15 Units/NS 250ml 15 UNITS/250 ML IV.SOLN 83 UNITS IV (06:07)
[2024-08-14] MEDS: Naproxen 500 MG Tablet PO ×2 (07:49→16:02)
[2024-08-14] MEDS: 0.9% Saline Lock 10 ML Syringe IV (08:56)
[2024-08-15] VITALS: BP 129/62; PULSE 85; RESP 17; TEMP 36.8; O2SAT 98
[2024-08-15 00:43] VITALS: BP 129/62; PULSE 83
[2024-08-15 04:00] VITALS: BP 107/57; PULSE 60; RESP 17; TEMP 36.3; O2SAT 99
[2024-08-15 04:48] VITALS: BP 107/57; PULSE 60
[2024-08-15 08:28] VITALS: BP 116/53; PULSE 92
[2024-08-15 08:32] VITALS: BP 116/53; PULSE 92; RESP 16; TEMP 36.4
--- NOTE | 2024-08-15 08:50 | PN.OBGYN_ITS ---
Subjective Subjective Patient doing well without complaints. Tolerating PO. Ambulating and voiding without difficulty. Feeding well. Denies chest pain, shortness of breath, calf pain/swelling, fevers, chills, lightheadedness. Objective Data Objective Data Vital Signs: Vital Signs Temp Pulse Resp BP Pulse Ox O2 Del Method 97.5 F L 92 16 116/53 L 99 Room Air 08/15/24 08:32 08/15/24 08:32 08/15/24 08:32 08/15/24 08:32 08/15/24 04:00 08/15/24 04:00 Oxygen Delivery Method Room Air Weight: 172 lb 6.4 oz Body Mass Index (BMI) 27.0 Intake & Output: Intake and Output for Last 24 Hours 08/13/24 08/14/24 08/15/24 23:59 23:59 23:59 Intake Total 1184.33 / 1184.33 2494.97 / 2494.97 Output Total 100 / 100 1100 / 1100 Balance 1084.33 / 1084.33 1394.97 / 1394.97 Lab / Micro Data Attestation: I reviewed the patient's lab results. 08/13/24 16:45 ROS Constitutional Constitutional: Reports systems reviewed and no addt'l complaints, except as documented; Denies anorexia or headache(s) Cardiovascular Cardiovascular: Reports systems reviewed and no addt'l complaints, except as documented; Denies dizziness, dyspnea, nausea or tachypnea Respiratory/Chest Respiratory/Chest: Reports systems reviewed and no addt'l complaints, except as documented; Denies cough, dyspnea, shortness of breath at rest or tachypnea Gastrointestinal Gastrointestinal: Reports systems reviewed and no addt'l complaints, except as documented; Denies abdominal pain, constipation or nausea Genitourinary Genitourinary: Reports systems reviewed and no addt'l complaints, except as documented; Denies burning urination, difficulty urinating, dysuria, urinary frequency or urinary incontinence Musculoskeletal Musculoskeletal: Reports systems reviewed and no addt'l complaints, except as documented Integumentary Integumentary: Reports systems reviewed and no addt'l complaints, except as documented Neurologic Neurologic: Reports systems reviewed and no addt'l complaints, except as documented; Denies abnormal speech, dizziness or headache(s) Psychiatric Psychiatric: Reports systems reviewed and no addt'l complaints, except as documented Endocrine Endocrinology: Reports systems reviewed and no addt'l complaints, except as documented Hematologic/Lymphatic Hematologic/Lymphatic: Reports systems reviewed and no addt'l complaints, except as documented Physical Exam Const alert, oriented x3 and no apparent distress Neck full ROM Resp normal respiratory effort, normal air movement and no retractions Effort and Inspection: able to speak in complete sentences and symmetric chest movement GI soft to palpation Bladder / Kidney Exam: bladder normal to palpation Uterus Palpation: uterus fundus firm Extremity normal to inspection and full ROM Psych mental status grossly normal, thought process normal and cooperative Assessment & Plan (1) (spontaneous vaginal delivery): COMMENT: LC Radhika 39weeks SROM PLAN: s/p PPD # 1 1. routine post delivery care 2. breast feeding- support given 3. rh positive 4. rubella immune 5. Discharge home (2) SROM (spontaneous rupture of membranes): COMMENT: 1500 clear fluid (3) GBS (group B Streptococcus carrier), +RV culture, currently : COMMENT: PCN in labor (4) Dizziness: (5) Anemia affecting : COMMENT: OTC iron (6) Rubella non-immune status, antepartum: COMMENT: offer MMR in pp (7) Bleeding in early : (8) History of depression, currently : COMMENT: stable. (9) Supervision of high-risk : QUALIFIERS: Trimester: first trimester Qualified Code(s): O09.91 - Supervision of high risk , unspecified, first trimester COMMENT: PRR , MARGARITA 08/19, PC: SYDNI Zacarias (10) : QUALIFIERS: Weeks of gestation: 38 weeks Qualified Code(s): Z 3A.38 - 38 weeks gestation of COMMENT: Discussed carrier/genetic testing, desires. nl anatomy Charges/Coding Multi Select Codes Urinary/Genital Urinary/Genital CPT Codes: No Charge
--- NOTE | 2024-08-15 10:19 | CASEMGMT ---
Social Work Assessment Labor and Delivery Unit Patient Address:[address] [place] [id number] Phone number: [phone] Date of Referral: 08/13/24 Time of Referral:? [id number] Referred By: Citlali Meeks Date of Intervention: ?08/15/24? Time of Intervention:? 09 Reason for Referral:? patient's father is an alcoholic Sw completed chart review and acknowledges social work consult. Sw presented to bedside and introduced self to mother of baby (ASUNCION Chadwick). Sw explained reason for sw involvement and completed psychosocial assessment. History obtained from: medical records and mother of baby (DANIEL)??? Household composition: Currently residing in the family home is MOB, father of baby (CHELEL Ignacio), their three year old daughter ([place]) and baby to be added to residence when ready for discharge. DANIEL denies any issues or concerns with housing. Patient's parent/guardian status:? ?DANIEL states that she and KVNG have been together for almost 7 years after meeting each other on Facebook. This is second baby for parents together. DANIEL denies any issues or concerns with domestic violence or intimate partner violence. Medical History: ?DANIEL is 24 year old female who is 3, para 1- now 2 following labor and delivery of . DANIEL received routine care during with [place]. DANIEL presented to hospital in active labor and delivered baby via spontaneous vaginal delivery at 39 weeks gestation. Baby girl, named Radhika, was born on 08/14/[birth year] weighing 7lb 1oz with apgars of 8 and 9 at one and five minutes of life, respectfully. DANIEL states that she is breast feeding and baby will be followed by Dr. Vazquez for pediatrics. Educational Status:? DANIEL reports that she only completed the 9th grade. KVNG graduated from high school. Financial Status: Both parents are employed outside of the home. 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 Infant Supplies: DANIEL states that she has obtained all necessary baby supplies, including: car seat, safe sleep space, clothes, diapers and wipes. Childcare/Caregiver(s):? DANIEL states that parents will be able to alternate their work scheduled so that one of them will be home with the children. Transportation:?? DANIEL reports that neither parent drives. They depend on FOB family members to help them get where they need to go. Programs/Agencies Involved: DANIEL reports that she has insurance through [employer] and [employer] ([employer]) along with SNAP benefits. DANIEL states that she will be calling [facility] to get connected to resources now that baby is born. ??? Children Services/Legal Issues:??? No history of children services involvement. No issues or concerns warranting referral to be made at this time. Behavioral Health Issues: ??Mental Health History:?DANIEL states that she has history of anxiety and depression. DANIEL reports that at baseline she struggles with her anxiety daily, but has healthy and appropriate coping mechanisms. MOB states that she struggled with depression/ anxiety after her first baby was born. MOB states at that time she was living with KVNG's mom and his siblings in a small home. MOB states that she felt overwhelmed and when she was able to move out her mental health significantly improved. DANIEL states at that time she also started medication prescribed by her OBGYN to help her manager zone her mental health symptoms. DANIEL does not remember name of the medication, and states that she took the medication for a couple of months. DANIEL completed [place] Depression Scale and her score was a 5. Sw provided education and support. ?? Substance Use History:??DANIEL denies substance use prior to and during . Family History:??Maternal grandfather is an alcoholic. MOB states that he has struggled with alcohol even prior to her being born. MOB states that she is not close with her father, and he will not be a childcare provider. Sw reminded DANIEL to be mindful of genetic disposition and to always use healthy coping mechanisms and to not seek comfort from drugs or alcohol. ??? Drug Screens: No drug screens observed during chart review. Family/Social Stressors:? MOB denies any issues, concerns or stressors Support Systems: MOB states that her family is supportive. MOB states that if she were to struggle with her mental health during this period she would talk to her family about what she is experiencing and they would be able to be supportive. MOB states that KVNG is a fur blowing machine operator and she does not go to him when she is struggling with her mental health. Depression/Shaken Baby/Safe Sleeping: Chong educated DANIEL on signs and symptoms of baby blues and mood and anxiety disorders to be mindful of during her period. MOB states that because she does not talk to FOB regarding her mental health, she does feel comfortable talking to her family. MOB states that she has also talked to her OBGYN in the past about her experience, and states she would do the same if she struggled during this time. Sw educated MOB on shaken baby prevention and ABCs of safe sleep. MOB expressed understanding. ASSESSMENT:? MOB and baby admitted following labor and delivery. MOB met with MOB at bedside, MOB receptive to talking with sw. MOB found to be observed and quiet but did participate in completion of psychosocial assessment. MOB has mental health history of anxiety and depression and reports to still have anxious thoughts at baseline. MOB states that she worries about everything. MOB states that she has tried medication in the past, but only for a couple of months during her period. MOB is not opposed to medication and feels she is comfortable reaching out to her OBGYN if she were to start having intrusive anxious thoughts during this period. MOB has obtained all necessary baby supplies and has natural supports in place. PLAN:?? No other services requested or indicated. MOB and baby to be discharged when medically ready. Parents were provided literature regarding: signs and symptoms of baby blues and mood and anxiety disorders, Help Me Grow, shaken baby prevention, ABCs of safe sleep and a list of county resources that are available for them should any needs present themselves. [place], [employer], [employer]
== END 2024-08-15 10:50 | disposition home or self-care (01) | DRG 560 ==
LOC: WPOUT 16:06 → WP 16:06
PROVIDERS: Admitting Provider Registered Nurse; Referring Provider Registered Nurse; Visit Provider Registered Nurse
DX: O42.92 Full-term premature rupture of membranes, unspecified as to length of time between rupture and onset of labor (principal); Z37.0 Single live birth; O99.02 Anemia complicating childbirth; Z3A.39 39 weeks gestation of pregnancy; Z86.59 Personal history of other mental and behavioral disorders; O99.824 Streptococcus B carrier state complicating childbirth
CPT/HCPCS: 59025; 59050; 84112; 85025; 86780; 86850; 86900; 86901; 99221; A4216; G0378; J2405